=== PATIENT | female | born 1940 | race Caucasian/White ===

== ENCOUNTER 2017-10-12 10:29 | Inpatient (IN) ==
[2017-10-12 11:27] LABS: Baso % (Auto) 0.6 % (0.0-2.0); Eos # (Auto) 0.1 th/mm3 (0.0-0.4); Eos % (Auto) 1.1 % (0.0-4.0); Hematocrit 33.2 % (35.0-46.0); Hemoglobin 11.2 gm/dL (11.6-15.3); Lymph # (Auto) 0.9 th/mm3 (1.0-4.8); Lymph % (Auto) 20.9 % (9.0-44.0); Mean Corpuscular HGB Conc 33.8 % (32.0-36.0); Mean Corpuscular Hemoglobin 29.3 pg (27.0-34.0); Mean Corpuscular Volume 86.6 fL (80.0-100.0); Mean Platelet Volume 8.2 fL (7.0-11.0); Mono # (Auto) 0.4 th/mm3 (0.0-0.9); Mono % (Auto) 9.7 % (0.0-8.0); Neut % (Auto) 67.7 % (16.0-70.0); Platelet Count 198 th/mm3 (150-450); Red Blood Count 3.84 mil/mm3 (4.00-5.30); Red Cell Distribution Width 13.2 % (11.6-17.2); White Blood Count 4.5 th/mm3 (4.0-11.0)
[2017-10-12 11:38] LABS: Activated Partial Thrombo Time 22.7 sec (24.3-30.1); Prothrombin Time 10.6 sec (9.8-11.6)
[2017-10-12 11:44] LABS: Albumin 3.7 g/dL (3.4-5.0); Anion Gap 9 meq/L (5-15); Aspartate Aminotransferase 27 U/L (15-37); Blood Urea Nitrogen 23 mg/dL (7-18); Calcium 9.3 mg/dL (8.5-10.1); Carbon Dioxide 27.2 meq/L (21.0-32.0); Chloride 109 meq/L (98-107); Glomerular Filtration Rate 44 mL/min (>89); Glucose,Random 100 mg/dL (74-106); Potassium 3.7 meq/L (3.5-5.1); Sodium 145 meq/L (136-145)
[2017-10-12 11:45] LABS: Alanine Aminotransferase 23 U/L (10-53)
[2017-10-12 11:47] LABS: Alkaline Phosphatase 89 U/L (45-117); Total Protein 7.2 g/dL (6.4-8.2)
--- NOTE | 2017-10-12 14:56 | ED ---
HPI General Chief complaint: Eye Problems Stated complaint: medical complaint Time Seen by Provider: 10/12/17 10:42 History of Present Illness HPI narrative: Patient 69-year-old female presents emergency department for evaluation of decreased vision in the right eye as well as intermittent headaches. Patient states his symptoms been going intermittently for the past few years, she told her son about it and he insisted that she come to the ER to be evaluated. She states that she has been kind of ignoring these symptoms, she states that she does know that she has a 70% blockage in her right side of her neck. States currently she feels absolutely fine the last time she had an episode was yesterday. No chest pain no shortness breath no abdominal pain no nausea vomiting no weakness in her arms or legs and problems walking she does have a history of chronic lymphedema peer Related Data Home Medications Medication Instructions Recorded Confirmed aspirin [Aspir-81] 81 mg PO DAILY 10/12/17 10/12/17 atorvastatin 20 mg PO DAILY 10/12/17 10/12/17 levothyroxine 112 mcg PO DAILY 10/12/17 10/12/17 lisinopril-hydrochlorothiazide 1 tab PO DAILY 10/12/17 10/12/17 Allergies Allergy/AdvReac Type Severity Reaction Status Date / Time No Known Allergies Allergy Unverified 10/12/17 10:51 Review of Systems ROS: all other systems reviewed are negative PMFSH Medical History Medical History Arthritis (Acute) Breast hematoma (Acute) Carotid artery disease (Acute) Ear ache (Acute) Herniated disc (Acute) High cholesterol (Acute) Hypertension (Acute) Lymphedema (Acute) Surgical History Surgical History H/O right knee surgery (Acute) Previous back surgery (Acute) Family History Family History Other Cirrhosis Tuberculosis Social History Social History Substance History: No History of Abuse Second Hand Smoke Exposure: No Smoking Status: Never smoker How Often Do You Have a Drink Containing Alcohol: Monthly or less Recent Travel in [facility] within the Last 8 Weeks: No Recent Out of Country Travel within the Last 8 Weeks: No Immunization History Tetanus Immunization: Unsure Hx Influenza Vaccine This Season: No Exam Narrative Exam Narrative: GENERAL: Well-developed well-nourished no obvious distress SKIN: Focused skin assessment warm/dry. HEAD: Atraumatic. Normocephalic. EYES: Pupils equal and round. No scleral icterus. No injection or drainage. ENT: No nasal bleeding or discharge. Mucous membranes pink and moist. NECK: Trachea midline. No JVD. CARDIOVASCULAR: Regular rate and rhythm. No murmur appreciated. RESPIRATORY: No accessory muscle use. Clear to auscultation. Breath sounds equal bilaterally. GASTROINTESTINAL: Abdomen soft, non-tender, nondistended. Hepatic and splenic margins not palpable. MUSCULOSKELETAL: No obvious deformities. No clubbing. No cyanosis. Significant edema bilateral lower extremities which patient states is chronic. NEUROLOGICAL: Awake alert and oriented, cranial nerves II through XII are grossly intact and nonfocal, 5 out of 5 strength in all 4 extremities, ambulate with an even narrow-base gait. Cerebellar testing negative. PSYCHIATRIC: Appropriate mood and affect; insight and judgment normal. Course Initial Documented Vital Signs Temperature 97.5 F L 10/12/17 10:32 Pulse Rate 97 H 10/12/17 10:32 Respiratory Rate 16 10/12/17 10:32 Blood Pressure 169/112 H 10/12/17 10:32 Pulse Oximetry 98 10/12/17 10:32 Last Documented Vital Signs Temperature 97.5 F L 10/12/17 10:32 Pulse Rate 94 H 10/12/17 14:32 Respiratory Rate 18 10/12/17 14:32 Blood Pressure 160/71 H 10/12/17 14:32 Pulse Oximetry 98 10/12/17 14:32 Medical Decision Making MDM Narrative Medical decision making narrative: this is 69-year-old female presents emergency department with intermittent right sided headache as well as visual disturbances. States that she has a history of 70% carotid blockage on the right side. Currently asymptomatic. Symptoms have been protracted course and she has been ignoring them, told her family about them and they recommended that she come to the ER. Initial workup is negative, recommend a TIA observation she is agreeable peer Medical Screen Exam Complete: Yes Emergency Medical Condition: Yes Differential Diagnosis Differential Diagnosis: TIA, intracranial injury, temporal arteritis Lab Data Result diagrams: 10/12/17 11:15 10/12/17 11:15 Lab Results 10/12/17 10/12/17 10/12/17 Range/Units 11:15 11:15 11:15 WBC 4.5 (4.0-11.0) th/mm3 RBC 3.84 L (4.00-5.30) mil/mm3 Hgb 11.2 L (11.6-15.3) gm/dL Hct 33.2 L (35.0-46.0) % MCV 86.6 (80.0-100.0) fL MCH 29.3 (27.0-34.0) pg MCHC 33.8 (32.0-36.0) % RDW 13.2 (11.6-17.2) % Plt Count 198 (150-450) th/mm3 MPV 8.2 (7.0-11.0) fL Neut % (Auto) 67.7 (16.0-70.0) % Lymph % (Auto) 20.9 (9.0-44.0) % [place] % (Auto) 9.7 H (0.0-8.0) % Eos % (Auto) 1.1 (0.0-4.0) % Baso % (Auto) 0.6 (0.0-2.0) % Neut # (Auto) 3.0 (1.8-7.7) th/mm3 Lymph # (Auto) 0.9 L (1.0-4.8) th/mm3 [place] # (Auto) 0.4 (0.0-0.9) th/mm3 Eos # (Auto) 0.1 (0.0-0.4) th/mm3 Baso # (Auto) 0.0 (0.0-0.2) th/mm3 WBC Differential . Differential Comment Auto diff final ESR (0-30) mm/hr PT 10.6 (9.8-11.6) sec INR 1.0 Ratio APTT 22.7 L (24.3-30.1) sec Sodium 145 (136-145) meq/L Potassium 3.7 (3.5-5.1) meq/L Chloride 109 H (98-107) meq/L Carbon Dioxide 27.2 (21.0-32.0) meq/L Anion Gap 9 (5-15) meq/L BUN 23 H (7-18) mg/dL Creatinine 1.19 H (0.50-1.00) mg/dL Estimated GFR 44 L (>89) mL/min Random Glucose 100 (74-106) mg/dL Calcium 9.3 (8.5-10.1) mg/dL Total Bilirubin 0.6 (0.2-1.0) mg/dL AST 27 (15-37) U/L ALT 23 (10-53) U/L Alkaline Phosphatase 89 (45-117) U/L C-Reactive Protein Less than 0.29 (0.00-0.30) mg/dL Total Protein 7.2 (6.4-8.2) g/dL Albumin 3.7 (3.4-5.0) g/dL Triglycerides (42-150) mg/dL Cholesterol (120-200) mg/dL LDL Cholesterol, Calc (0-99) mg/dL HDL Cholesterol (40.0-60.0) mg/dL Cholesterol/HDL Ratio Ratio Vitamin B12 (193-986) pg/mL TSH (0.358-3.740) uIU/mL 10/12/17 10/12/17 Range/Units 11:15 11:15 WBC (4.0-11.0) th/mm3 RBC (4.00-5.30) mil/mm3 Hgb (11.6-15.3) gm/dL Hct (35.0-46.0) % MCV (80.0-100.0) fL MCH (27.0-34.0) pg MCHC (32.0-36.0) % RDW (11.6-17.2) % Plt Count (150-450) th/mm3 MPV (7.0-11.0) fL Neut % (Auto) (16.0-70.0) % Lymph % (Auto) (9.0-44.0) % [place] % (Auto) (0.0-8.0) % Eos % (Auto) (0.0-4.0) % Baso % (Auto) (0.0-2.0) % Neut # (Auto) (1.8-7.7) th/mm3 Lymph # (Auto) (1.0-4.8) th/mm3 [place] # (Auto) (0.0-0.9) th/mm3 Eos # (Auto) (0.0-0.4) th/mm3 Baso # (Auto) (0.0-0.2) th/mm3 WBC Differential Differential Comment ESR 34 H (0-30) mm/hr PT (9.8-11.6) sec INR Ratio APTT (24.3-30.1) sec Sodium (136-145) meq/L Potassium (3.5-5.1) meq/L Chloride (98-107) meq/L Carbon Dioxide (21.0-32.0) meq/L Anion Gap (5-15) meq/L BUN (7-18) mg/dL Creatinine (0.50-1.00) mg/dL Estimated GFR (>89) mL/min Random Glucose (74-106) mg/dL Calcium (8.5-10.1) mg/dL Total Bilirubin (0.2-1.0) mg/dL AST (15-37) U/L ALT (10-53) U/L Alkaline Phosphatase (45-117) U/L C-Reactive Protein (0.00-0.30) mg/dL Total Protein (6.4-8.2) g/dL Albumin (3.4-5.0) g/dL Triglycerides 104 (42-150) mg/dL Cholesterol 107 L (120-200) mg/dL LDL Cholesterol, Calc 44 (0-99) mg/dL HDL Cholesterol 42.3 (40.0-60.0) mg/dL Cholesterol/HDL Ratio 2.52 Ratio Vitamin B12 525 (193-986) pg/mL TSH Less than 0.005 L (0.358-3.740) uIU/mL Imaging Data Radiologist's impression: Carotid Doppler Study 10/12/17 00:00 CONCLUSION: 1. Right Internal Carotid Artery: Findings indicate near occlusion. 2. Left Internal Carotid Artery: Findings indicate 50-69% stenosis. 3. Antegrade flow is identified in both vertebral arteries. Head MRI 10/12/17 00:00 CONCLUSION: 1. No evidence of acute infarct, hemorrhage, mass or edema. 2. Mild cerebral white matter T2 hyperintensities characteristic of mild microvascular ischemic change. Head CT 10/12/17 14:28 CONCLUSION: Negative CT Head non contrast. . Discharge Plan Discharge Disposition Patient Disposition: 30 Still Patient Discharge Condition Condition: Stable Physicians Team ED Provider: Nacho Prater Primary Care Provider: UNKNOWN, Attending Provider: Lan Oropeza Discharge Interventions Interventions: ED Discharge Assessment Last Done: 10/12/17 17:33 Vital Signs Last Done: 10/12/17 14:32 Status ED Status: Left Department Discharge Information Discharge Date/Time: 10/12/17 17:33
--- NOTE | 2017-10-12 14:59 | CT ---
EXAM DATE: 10/12/2017 2:56 PM EDT AGE/SEX: 77 years / Female INDICATIONS: Headache 1 day, Double vision intermittent 8 months CLINICAL DATA: This is the patient's initial encounter. Patient reports that signs and symptoms have been present for 1 day and indicates a pain score of 5/10. MEDICAL/SURGICAL HISTORY: Hypertension. Lymphedema, Carotid artery disease . Knee and back surger y RADIATION DOSE: 34.42 CTDI (mGy) COMPARISON: No prior exams available for comparison. TECHNIQUE: CT of the head without contrast. Using automated exposure control and adjustment of the mA and/or kV according to patient size, radiation dose was kept as low as reasonably achievable to ob tain optimal diagnostic quality images. DICOM format image data is available electronically for revi ew and comparison. FINDINGS: Cerebrum: The ventricles are normal for age. No evidence of midline shift, mass lesion, hemorrhage or acute infarction. No extraaxial fluid collections are seen. Posterior Fossa: The cerebellum and brainstem are intact. The 4th ventricle is midline. The cerebe llopontine angle is unremarkable. Extracranial: The visualized portion of the orbits is intact. Skull: The calvaria is intact. No evidence of skull fracture. CONCLUSION: Negative CT Head non contrast. . Electronically signed by: Je Gann MD 10/12/2017 2:57 PM EDT
[2017-10-12] MEDS ORDERED: Acetaminophen 325 MG Tablet PO PRN (15:58)
--- NOTE | 2017-10-12 16:10 | P.HPIM ---
History of Present Illness Primary Care Physician: UNKNOWN Chief Complaint: Visual disturbance History of Present Illness: The patient is a 77-year-old female with a past medical history significant for hypertension, hyperlipidemia and carotid disease who is presenting to the hospital with chronic vision changes. The patient says that starting in January she has had episodes of lightheadedness that seem to correlate with episodes of right eye visual changes. The patient said that sometimes while she is watching TV all of a sudden her right eye becomes clouded. She also describes sometimes seeing double vision out of the right eye. She says at one time she could not see anything out of the right eye for a period of 10-15 minutes. She says the symptoms come and go. She currently is asymptomatic. She says her vision in her right eye is completely normal at this time. She denies any problems with her left eye. She said she went to have her eye checked out on Friday so she went to an eye doctor and was told that everything was fine. The patient says she came to the hospital today because her son encouraged her after having another episode yesterday while fishing. The patient is currently completely asymptomatic. She says she has some chronic shakiness. She denies any strength disturbances or any sensation of numbness. She does endorse night sweats from time to time. She says she was told that her right carotid is 70% occluded and she is wondering if that has anything to do with her visual disturbance. Review of Systems All other systems reviewed negative except as stated in HPI PMFSH - History History Provided By: Patient - Medical History Medical History: Medical History (Last Updated 10/12/17 @ 16:12 by Lan Oropeza DO) Arthritis Breast hematoma Carotid artery disease Ear ache Herniated disc High cholesterol Hypertension Lymphedema - Surgical History Surgical History: Surgical History (Last Updated 10/12/17 @ 10:49 by Yohana Ramirez) H/O right knee surgery Previous back surgery - Family History Family History: Family History (Last Updated 10/12/17 @ 16:12 by Lan Oropeza DO) Other Cirrhosis Tuberculosis - Tobacco History Second Hand Smoke Exposure: No Smoking Status: Former smoker (Quit in the 80s) - Alcohol History How Often Do You Have a Drink Containing Alcohol: Monthly or less - Substance Use History Substance History: No History of Abuse - Travel History Recent Travel in the [facility] Within the Last 8 Weeks: No Recent Travel Out of the Country Within the Last 8 Weeks: No - Immunization History Tetanus Immunization: Unsure Hx Influenza Vaccine This Season: No Medications and Allergies Active Medications: Active Medications Acetaminophen (Tylenol) 650 mg PO Q4H PRN PRN Reason: Temp > 100.4 Amlodipine Besylate (Norvasc) 5 mg PO DAILY [facility] Aspirin (Ecotrin) 81 mg PO DAILY [facility] Atorvastatin Calcium (Lipitor) 20 mg PO DAILY [facility] Clonidine HCl (Catapres) 0.1 mg PO Q6H PRN PRN Reason: SBP> OR = 180, DBP> OR = 100 Heparin Sodium (Porcine) (Heparin Inj) 5,000 units SQ Q8H RODGER Sodium Chloride (1/2 Normal Saline Inj) 1,000 mls @ 75 mls/hr IV.CONT .[id number] [facility] Stop: 10/13/17 18:39 Levothyroxine Sodium (Synthroid) 112 mcg PO DAILY@0600 RODGER Sodium Chloride (Ns Flush) 2 ml IV.FLUSH PRN PRN PRN Reason: FLUSH AFTER USING IV ACCESS Allergies Allergy/AdvReac Type Severity Reaction Status Date / Time No Known Allergies Allergy Unverified 10/12/17 10:51 Home Medications Medication Instructions Recorded Confirmed Type aspirin [Aspir-81] 81 mg PO DAILY 10/12/17 10/12/17 History atorvastatin 20 mg PO DAILY 10/12/17 10/12/17 History levothyroxine 112 mcg PO DAILY 10/12/17 10/12/17 History lisinopril-hydrochlorothiazide 1 tab PO DAILY 10/12/17 10/12/17 History Exam Vital signs: Vital Signs 10/12/17 10:32 10/12/17 10:50 10/12/17 14:32 Temperature 97.5 F L Pulse Rate 97 H 95 H 94 H Respiratory Rate 16 19 18 Blood Pressure 169/112 H 149/65 H 160/71 H Pulse Oximetry 98 96 98 Intake & Output 10/11/17 10/12/17 10/12/17 18:59 06:59 18:59 Weight 85.275 kg Other: # Voids 1 Narrative: General: NAD HEENT: NC, AT, no injection Cardiac: RRR, no murmurs Pulmonary: CTAB, no W/R/R Abdomen: Nontender, nondistended Extremities: Lymphedema noted Neuro: EOMI, communications intern intact, motor strength 5/5 in upper and lower extremities, mild tremor noted Results - Labs CBC & Chem 7: 10/12/17 11:15 10/12/17 11:15 Labs: Short CBC 10/12/17 Range/Units 11:15 WBC 4.5 (4.0-11.0) th/mm3 Hgb 11.2 L (11.6-15.3) gm/dL Hct 33.2 L (35.0-46.0) % Plt Count 198 (150-450) th/mm3 BMP 10/12/17 11:15 Sodium 145 Potassium 3.7 Chloride 109 H Carbon Dioxide 27.2 BUN 23 H Creatinine 1.19 H Calcium 9.3 Liver Function 10/12/17 Range/Units 11:15 Total Bilirubin 0.6 (0.2-1.0) mg/dL AST 27 (15-37) U/L ALT 23 (10-53) U/L Alkaline Phosphatase 89 (45-117) U/L Albumin 3.7 (3.4-5.0) g/dL - Imaging Impressions Head CT 10/12/17 14:28 CONCLUSION: Negative CT Head non contrast. . Caprini VTE Risk Assessment Caprini VTE Risk Assessment: Moderate/High Risk (score >= 2) Caprini Risk Assessment Model: Point Value = 1 Point Value = 2 Point Value = 3 Point Value = 5 Age 41-60 Minor surgery BMI > 25 kg/m2 Swollen legs Varicose veins or History of unexplained or recurrent spontaneous Oral contraceptives or hormone replacement Sepsis (< 1 month) Serious lung disease, including pneumonia (< 1 month) Abnormal pulmonary function Acute myocardial infarction Congestive heart failure (< 1 month) History of inflammatory bowel disease Medical patient at bed rest Age 61-74 Arthroscopic surgery Major open surgery (> 45 min) Laparoscopic surgery (> 45 min) Malignancy Confined to bed (> 72 hours) Immobilizing plaster cast Central venous access Age >= 75 History of VTE Family history of VTE Factor V Leiden Prothrombin [id number] Lupus anticoagulant Anticardiolipin antibodies Elevated serum homocysteine Heparin-induced thrombocytopenia Other congenital or acquired thrombophilia Stroke (< 1 month) Elective arthroplasty Hip, pelvis, or leg fracture Acute spinal cord injury (< 1 month) Prophylaxis Regimen: Total Risk Factor Score Risk Level Prophylaxis Regimen 0-1 Low Early ambulation 2 Moderate Order ONE of the following: *Sequential Compression Device (SCD) *Heparin 5000 units SQ BID 3-4 Higher Order ONE of the following medications: *Heparin 5000 units SQ TID *Enoxaparin/Lovenox 40 mg SQ daily (WT < 150 kg, CrCl > 30 mL/min) *Enoxaparin/Lovenox 30 mg SQ daily (WT < 150 kg, CrCl > 10-29 mL/min) *Enoxaparin/Lovenox 30 mg SQ BID (WT < 150 kg, CrCl > 30 mL/min) AND/OR *Sequential Compression Device (SCD) 5 or more Highest Order ONE of the following medications: *Heparin 5000 units SQ TID (Preferred with Epidurals) *Enoxaparin/Lovenox 40 mg SQ daily (WT < 150 kg, CrCl > 30 mL/min) *Enoxaparin/Lovenox 30 mg SQ daily (WT < 150 kg, CrCl > 10-29 mL/min) *Enoxaparin/Lovenox 30 mg SQ BID (WT < 150 kg, CrCl > 30 mL/min) AND *Sequential Compression Device (SCD) Assessment and Plan - Plan Visual changes Ongoing right eye changes starting in January, currently asymptomatic. Associated with light headedness. Recent fusion operator evaluation was normal. CT head unremarkable. The pt says she has a 70% blockage in her right carotid artery. -neuro checks. -check an EKG. -MRI brain, carotid US and echocardiogram pending. -check lipid profile, A1c, B12, ESR and TSH levels. -PT evaluation. -neurology consult in AM if needed. HTN Blood pressure elevated in the ED. -hold lisinopril/HCTZ in setting of renal insufficiency. -start amlodipine and adjust as needed. -clonidine as needed. Acute renal insufficiency Likely exacerbated by blood pressure meds. -hold home blood pressure meds. -IVFs. -follow BMP and avoid nephrotoxins. Hypothyroidism On levothyroxine. -TSH is pending. -continue levothyroxine. PPx: Heparin
[2017-10-12 16:40] LABS: Cholesterol 107 mg/dL (120-200); Triglycerides 104 mg/dL (42-150)
[2017-10-12] MEDS: Heparin - SQ 10,000 UNITS/ML Vial SQ SCH (16:52)
[2017-10-12] MEDS: Sodium Chloride 0.45 % Inj 1,000 ML IV.CONT SCH (16:52)
[2017-10-12] MEDS: amLODIPine 5 MG Tablet PO SCH (16:52)
[2017-10-12 17:05] LABS: Chol/HDL Ratio 2.52 Ratio; HDL Cholesterol 42.3 mg/dL (40.0-60.0); LDL Cholesterol,Calculated 44 mg/dL (0-99); Vitamin B12 525 pg/mL (193-986)
--- NOTE | 2017-10-12 17:27 | US ---
EXAM DATE: 10/12/2017 5:20 PM EDT AGE/SEX: 77 years / Female INDICATIONS: Cerebrovascular accident. CLINICAL DATA: This is the patient's initial encounter. Patient reports that signs and symptoms have been present for > 1 year and indicates a pain score of 2/10. MEDICAL/SURGICAL HISTORY: Hypercholesterolemia. Hypertension. Arthritis. Breast hematoma. Bucio tid artery disease. Lymphedema. . Right knee surgery. Back surgery. COMPARISON: No prior exams available for comparison. VELOCITY PARAMETERS: ICA/CCA Ratio: Right 5.5 , Left 1.9 ICA: Right 420 cm/sec, Left 199 cm/sec CCA: Right 76.5 cm/sec, Left 104 cm/sec ECA: Right 301 cm/sec, Left 140 cm/sec Vertebral: Right 72.8 cm/sec antegrade, Left 76.0 cm/sec antegrade FINDINGS: Right Carotid: Heavily calcified plaque is identified in the right carotid bifurcation extending int o the origin of the internal carotid artery. There is marked elevation of peak systolic velocity in t he proximal internal carotid artery. Significant spectral broadening and diastolic flow dampening is noted. Left Carotid: Moderate calcified plaque is identified in the left carotid bifurcation extending into the proximal internal carotid artery. There is [id number] elevation of peak systolic velocity. . The waveforms are within normal limits. Other: None. CONCLUSION: 1. Right Internal Carotid Artery: Findings indicate near occlusion. 2. Left Internal Carotid Artery: Findings indicate 50-69% stenosis. 3. Antegrade flow is identified in both vertebral arteries. Electronically signed by: Dewey Quinn MD 10/12/2017 5:26 PM EDT
--- NOTE | 2017-10-12 17:29 | MR ---
EXAM DATE: 10/12/2017 4:37 PM EDT AGE/SEX: 77 years / Female INDICATIONS: . Intermittent Tunnel vision. CLINICAL DATA: This is the patient's initial encounter. Patient reports that signs and symptoms have been present for 3 months and indicates a pain score of 0/10. MEDICAL/SURGICAL HISTORY: Hypertension. Discectomy, lumbar. Right knee. COMPARISON: [facility] [place], [place] HEAD W/O CONTRAST, 10/12/2017. . TECHNIQUE: Multiplanar, multisequence examination of the brain was performed without contrast. FINDINGS: Cerebrum: The ventricles are normal for age. No evidence of midline shift, mass lesion, hemorrhage or acute infarction. No extraaxial fluid collections are seen. The pituitary gland and suprasellar cistern are normal in configuration. White Matter: Mild signal abnormalities are seen in the white matter. Posterior Fossa: The cerebellum and brainstem are intact. The 4th ventricle is midline. The cerebel lopontine angle is unremarkable. The cerebellar tonsils are normal in position. Diffusion Imaging: No focal areas of restricted diffusion are seen. No evidence of acute infarction . Extracranial: The visualized portions of the orbits and paranasal sinuses are unremarkable. CONCLUSION: 1. No evidence of acute infarct, hemorrhage, mass or edema. 2. Mild cerebral white matter T2 hyperintensities characteristic of mild microvascular ischemic marcus ge. Electronically signed by: Dewey Quinn MD 10/12/2017 5:27 PM EDT
[2017-10-12] MEDS ORDERED: Melatonin 5 MG Tablet PO PRN (21:28)
[2017-10-13] MEDS: Heparin - SQ 10,000 UNITS/ML Vial SQ SCH ×3 (00:50→15:38)
[2017-10-13] MEDS: Sodium Chloride 0.45 % Inj 1,000 ML IV.CONT SCH (05:16)
[2017-10-13] MEDS ORDERED: Levothyroxine 112 MCG Tablet PO SCH (06:00)
[2017-10-13 06:18] LABS: Baso % (Auto) 0.6 % (0.0-2.0); Eos # (Auto) 0.1 th/mm3 (0.0-0.4); Eos % (Auto) 2.1 % (0.0-4.0); Hematocrit 31.2 % (35.0-46.0); Hemoglobin 10.5 gm/dL (11.6-15.3); Lymph # (Auto) 1.4 th/mm3 (1.0-4.8); Mean Corpuscular HGB Conc 33.7 % (32.0-36.0); Mean Corpuscular Hemoglobin 29.4 pg (27.0-34.0); Mean Corpuscular Volume 87.2 fL (80.0-100.0); Mean Platelet Volume 8.5 fL (7.0-11.0); Mono # (Auto) 0.5 th/mm3 (0.0-0.9); Mono % (Auto) 9.3 % (0.0-8.0); Neut # (Auto) 3.7 th/mm3 (1.8-7.7); Platelet Count 175 th/mm3 (150-450); Red Blood Count 3.57 mil/mm3 (4.00-5.30); Red Cell Distribution Width 13.5 % (11.6-17.2); White Blood Count 5.7 th/mm3 (4.0-11.0)
[2017-10-13 06:35] LABS: Albumin 3.3 g/dL (3.4-5.0); Anion Gap 9 meq/L (5-15); Aspartate Aminotransferase 26 U/L (15-37); Blood Urea Nitrogen 19 mg/dL (7-18); Calcium 9.5 mg/dL (8.5-10.1); Carbon Dioxide 26.3 meq/L (21.0-32.0); Chloride 109 meq/L (98-107); Glomerular Filtration Rate 54 mL/min (>89); Glucose,Random 84 mg/dL (74-106); Potassium 4.1 meq/L (3.5-5.1); Sodium 144 meq/L (136-145)
[2017-10-13 06:37] LABS: Alanine Aminotransferase 21 U/L (10-53)
[2017-10-13 06:39] LABS: Alkaline Phosphatase 84 U/L (45-117); Total Protein 6.6 g/dL (6.4-8.2)
[2017-10-13] MEDS: amLODIPine 5 MG Tablet PO SCH (08:45)
--- NOTE | 2017-10-13 14:58 | P.PNIM ---
Subjective Interval history: The patient is a 77-year-old female with a past medical history significant for hypertension, hyperlipidemia and carotid disease who is presenting to the hospital with chronic vision changes. The patient says that starting in January she has had episodes of lightheadedness that seem to correlate with episodes of right eye visual changes. The patient said that sometimes while she is watching TV all of a sudden her right eye becomes clouded. She also describes sometimes seeing double vision out of the right eye. She says at one time she could not see anything out of the right eye for a period of 10-15 minutes. She says the symptoms come and go. She currently is asymptomatic. She says her vision in her right eye is completely normal at this time. She denies any problems with her left eye. She said she went to have her eye checked out on Friday so she went to an eye doctor and was told that everything was fine. The patient says she came to the hospital today because her son encouraged her after having another episode yesterday while fishing. The patient is currently completely asymptomatic. She says she has some chronic shakiness. She denies any strength disturbances or any sensation of numbness. She does endorse night sweats from time to time. She says she was told that her right carotid is 70% occluded and she is wondering if that has anything to do with her visual disturbance. 10-13 THESE SYMPTOMS SOUND LIKE TIA/CVA LIKE SYMPTOMS ECHO IS PENDING HAS SEVERE RIGHT CAROTID STENOSIS WILL CONSULT NEUROLOGY FOR TIA NEED ECHO INCREASE ASPIRIN TO 325MG PO DAILY Physical Exam Vital signs: Vital Signs 10/12/17 18:20 10/12/17 20:00 10/13/17 00:00 Temperature 97.8 F 98.0 F 98.0 F Pulse Rate 83 78 78 Respiratory Rate 16 14 16 Blood Pressure 177/77 H 123/58 L 123/58 L Pulse Oximetry 96 10/13/17 04:00 10/13/17 07:35 10/13/17 08:00 Temperature 97.9 F 97.7 F Pulse Rate 76 85 76 Respiratory Rate 18 14 Blood Pressure 142/6 H 131/66 Pulse Oximetry 96 95 10/13/17 12:00 Temperature 98.0 F Pulse Rate 77 Respiratory Rate 12 Blood Pressure 135/63 Pulse Oximetry 97 Intake & Output 10/12/17 10/13/17 10/13/17 18:59 06:59 18:59 Intake Total 1480 / 1480 Balance 1480 / 1480 Weight 85.275 kg Intake: IV 1000 / 1000 1/2 Normal Saline Inj 1,000 ML 1000 / 1000 @ 75 mls/hr IV.CONT .[id number] [facility] Rx#:[id number] Oral 480 / 480 Other: # Voids 1 6 Narrative: GENERAL: Awake alert and oriented 3 talkative and cooperative SKIN: Warm and dry. HEAD: Atraumatic. Normocephalic. EYES: Pupils equal and round. No scleral icterus. No injection or drainage. ENT: No nasal bleeding or discharge. Mucous membranes pink and moist. NECK: Trachea midline. No JVD. CARDIOVASCULAR: Regular rate and rhythm. S1-S2 no S3 or S4 RESPIRATORY: No accessory muscle use. Clear to auscultation. Breath sounds equal bilaterally. GASTROINTESTINAL: Abdomen soft, non-tender, nondistended. Hepatic and splenic margins not palpable. MUSCULOSKELETAL: Extremities without clubbing, cyanosis, or edema. No obvious deformities. NEUROLOGICAL: Awake and alert. No obvious cranial nerve deficits. Motor grossly within normal limits. Five out of 5 muscle strength in the arms and legs. Normal speech. PSYCHIATRIC: Appropriate mood and affect; insight and judgment normal. Results - Labs CBC & Chem 7: 10/13/17 04:45 10/13/17 04:45 Laboratory Results - last 24 hr 10/12/17 10/13/17 10/13/17 11:15 04:45 04:45 WBC 5.7 RBC 3.57 L Hgb 10.5 L Hct 31.2 L MCV 87.2 MCH 29.4 MCHC 33.7 RDW 13.5 Plt Count 175 MPV 8.5 Neut % (Auto) 64.0 Lymph % (Auto) 24.0 [place] % (Auto) 9.3 H Eos % (Auto) 2.1 Baso % (Auto) 0.6 Neut # (Auto) 3.7 Lymph # (Auto) 1.4 [place] # (Auto) 0.5 Eos # (Auto) 0.1 Baso # (Auto) 0.0 WBC Differential . Differential Comment Auto diff final Sodium 144 Potassium 4.1 Chloride 109 H Carbon Dioxide 26.3 Anion Gap 9 BUN 19 H Creatinine 1.00 Estimated GFR 54 L Random Glucose 84 Calcium 9.5 Total Bilirubin 0.5 AST 26 ALT 21 Alkaline Phosphatase 84 Total Protein 6.6 D Albumin 3.3 L Triglycerides 104 Cholesterol 107 L LDL Cholesterol, Calc 44 HDL Cholesterol 42.3 Cholesterol/HDL Ratio 2.52 Vitamin B12 525 TSH Less than 0.005 L - Imaging Impressions Carotid Doppler Study 10/12/17 00:00 CONCLUSION: 1. Right Internal Carotid Artery: Findings indicate near occlusion. 2. Left Internal Carotid Artery: Findings indicate 50-69% stenosis. 3. Antegrade flow is identified in both vertebral arteries. Head MRI 10/12/17 00:00 CONCLUSION: 1. No evidence of acute infarct, hemorrhage, mass or edema. 2. Mild cerebral white matter T2 hyperintensities characteristic of mild microvascular ischemic change. Head CT 10/12/17 14:28 CONCLUSION: Negative CT Head non contrast. . - Procedures NONE Assessment and Plan - Plan Visual changes Ongoing right eye changes starting in January, currently asymptomatic. Associated with light headedness. Recent cycle director evaluation was normal. CT head unremarkable. The pt says she has a 70% blockage in her right carotid artery. -neuro checks. -check an EKG. -MRI brain, carotid US and echocardiogram pending. -check lipid profile, A1c, B12, ESR and TSH levels. -PT evaluation. -neurology consult Increase aspirin to 325 mg daily HTN Blood pressure elevated in the ED. -hold lisinopril/HCTZ in setting of renal insufficiency. -start amlodipine and adjust as needed. -clonidine as needed. Acute renal insufficiency Likely exacerbated by blood pressure meds. -hold home blood pressure meds. -IVFs. -follow BMP and avoid nephrotoxins. Hypothyroidism On levothyroxine. Will probably need her TSH back -TSH is pending. -continue levothyroxine. PPx: Heparin Code Status: FULL CODE Discussed Condition With: RN AND PT AND CM Discharge Planning: Pending neurology clearance
--- NOTE | 2017-10-13 16:04 | P.PNVS ---
Subjective Subjective/Hospital Course: Patient seen, full consult dictated 77-year-old lady with amaurosis fugax 3 and possible TIA to the right cerebral hemisphere. CT of the brain MRI of the brain are negative for stroke CTA of the neck pending and barring any surprises patient will be scheduled for right carotid endarterectomy next 48 hours In the meantime patient should be on heparin and Plavix and I will stop the heparin probably only a few hours prior to surgery Plan on R carotid endarterectomy on Friday Thanks J Objective Vital Signs / I&O: Vital Signs 10/12/17 18:20 10/12/17 20:00 10/13/17 00:00 Temperature 97.8 F 98.0 F 98.0 F Pulse Rate 83 78 78 Respiratory Rate 16 14 16 Blood Pressure 177/77 H 123/58 L 123/58 L Pulse Oximetry 96 10/13/17 04:00 10/13/17 07:35 10/13/17 08:00 Temperature 97.9 F 97.7 F Pulse Rate 76 85 76 Respiratory Rate 18 14 Blood Pressure 142/6 H 131/66 Pulse Oximetry 96 95 10/13/17 12:00 10/13/17 15:50 Temperature 98.0 F 98.0 F Pulse Rate 77 93 H Respiratory Rate 12 14 Blood Pressure 135/63 176/85 H Pulse Oximetry 97 99 Intake & Output 10/12/17 10/13/17 10/13/17 18:59 06:59 18:59 Intake Total 1480 / 1480 Balance 1480 / 1480 Weight 85.275 kg Intake: IV 1000 / 1000 1/2 Normal Saline Inj 1,000 ML 1000 / 1000 @ 75 mls/hr IV.CONT .[id number] [facility] Rx#:[id number] Oral 480 / 480 Other: # Voids 1 6 Laboratory Results - last 24 hr 10/12/17 10/13/17 10/13/17 11:15 04:45 04:45 WBC 5.7 RBC 3.57 L Hgb 10.5 L Hct 31.2 L MCV 87.2 MCH 29.4 MCHC 33.7 RDW 13.5 Plt Count 175 MPV 8.5 Neut % (Auto) 64.0 Lymph % (Auto) 24.0 [place] % (Auto) 9.3 H Eos % (Auto) 2.1 Baso % (Auto) 0.6 Neut # (Auto) 3.7 Lymph # (Auto) 1.4 [place] # (Auto) 0.5 Eos # (Auto) 0.1 Baso # (Auto) 0.0 WBC Differential . Differential Comment Auto diff final Sodium 144 Potassium 4.1 Chloride 109 H Carbon Dioxide 26.3 Anion Gap 9 BUN 19 H Creatinine 1.00 Estimated GFR 54 L Random Glucose 84 Calcium 9.5 Total Bilirubin 0.5 AST 26 ALT 21 Alkaline Phosphatase 84 Total Protein 6.6 D Albumin 3.3 L Triglycerides 104 Cholesterol 107 L LDL Cholesterol, Calc 44 HDL Cholesterol 42.3 Cholesterol/HDL Ratio 2.52 Vitamin B12 525 TSH Less than 0.005 L Impressions Carotid Doppler Study 10/12/17 00:00 CONCLUSION: 1. Right Internal Carotid Artery: Findings indicate near occlusion. 2. Left Internal Carotid Artery: Findings indicate 50-69% stenosis. 3. Antegrade flow is identified in both vertebral arteries. Head MRI 10/12/17 00:00 CONCLUSION: 1. No evidence of acute infarct, hemorrhage, mass or edema. 2. Mild cerebral white matter T2 hyperintensities characteristic of mild microvascular ischemic change. Head CT 10/12/17 14:28 CONCLUSION: Negative CT Head non contrast. .
[2017-10-13 16:46] LABS: Hemoglobin A1c 5.4 % (4.3-6.0)
[2017-10-13 17:27] LABS: INR 1.1 Ratio; Prothrombin Time 10.7 sec (9.8-11.6)
[2017-10-13] MEDS: Heparin Drip 25,000 UNIT/250 ML BAG IV.CONT PRN (17:45)
--- NOTE | 2017-10-13 17:57 | MR ---
EXAM DATE: 10/13/2017 5:52 PM EDT AGE/SEX: 77 years / Female INDICATIONS: . TIA. CLINICAL DATA: This is the patient's initial encounter. Patient reports that signs and symptoms have been present for 2 days and indicates a pain score of 0/10. MEDICAL/SURGICAL HISTORY: Hypertension. Discectomy, lumbar. Right knee. COMPARISON: [facility] – [place], MR HEAD W/O CONTRAST, 10/12/2017. . TECHNIQUE: 3D grye-is-uplxso MRA was performed. Source images, multiplanar STS MIP, and 3D volum e MIP reconstructions were reviewed. FINDINGS: There is excellent visualization of the major intracranial arteries out to the second-order branch ve ssels. There is no evidence for aneurysm, vessel truncation or stenosis, and no evidence for vascula r malformation. CONCLUSION: 1. Negative MRI of the brain. There is no major branch vessel occlusion. Electronically signed by: Steven Crespo MD 10/13/2017 5:56 PM EDT
--- NOTE | 2017-10-13 18:59 | MB ---
cc: Devon Lawrence MD DATE: 10/13/2017 CONSULTING PHYSICIAN: Devon Lawrence MD, of vascular surgery. REASON FOR CONSULTATION: Right internal carotid near occlusive stenosis, left with about 60% stenosis and TIAs. HISTORY OF PRESENT ILLNESS: This 77-year-old female who presents with some visual changes. The patient states that in January last year, she became lightheaded and then had some tunnel vision in the right eye and then clouds, lost the vision and then came back about 15 minutes later. She kind of let it go. Now, this happened again and she went to the eye doctor. While the eye doctor told her she was fine, and I guess she was, she came to the hospital at the encouragement of her son because she had another episode of the same. Ultrasound reveals near occlusion of the right internal carotid artery and about 60% left internal stenosis. Hence, the consultation. PAST MEDICAL HISTORY: Hyperlipidemia and hypertension. PAST SURGICAL HISTORY: Some sort of a breast hematoma from an accident drainage and then knee surgery as well as laminectomy. SOCIAL HISTORY: The patient smoked when she was young but stopped 30 something years ago. PHYSICAL EXAMINATION: GENERAL: Reveals a very pleasant 77-year-old lady. HEENT: Normocephalic. No trauma to head. Pupils are equal and reactive. Extraocular muscles intact. NECK: Bilateral carotid pulses and bilateral bruits. Actually, the one on the right is pretty strong and it is about 4/6. The other one on the left is about 3/6. No masses in the neck. CHEST: Bilateral breath sounds. Some degree of emphysema and loss of chest wall musculature with mild pulmonary cachexia but nothing else. HEART: Regular rhythm. ABDOMEN: Soft. Active bowel sounds. No rebound, no guarding, no masses. EXTREMITIES: Grossly within normal limits with good proximal and distal pulses. No signs of vascular deficit. The patient actually has palpable pulses throughout in arms and legs. BACK: Grossly normal. NEUROLOGIC: The patient is currently in normal. She has no motoric or sensory deficits. No lateralization. Deep tendon reflexes normal. No pathologic reflexes. CN 2-12 are normal. Her vision is back to baseline. ASSESSMENT AND PLAN: Laboratory and diagnostic procedures have been performed. The patient had an ultrasound and I ordered a CTA. MRI of the brain does not show any strokes. The patient will have surgery in the next 48 hours. Thank you very much for the referral. MD STEF Farr/bianca , 04:10 PM , 04:17 PM
--- NOTE | 2017-10-13 19:55 | CT ---
EXAM DATE: 10/13/2017 7:46 PM EDT AGE/SEX: 77 years / Female INDICATIONS: Abnormal carotid ultrasound. CLINICAL DATA: This is the patient's initial encounter. Patient reports that signs and symptoms have been present for 1 day and indicates a pain score of 0/10. MEDICAL/SURGICAL HISTORY: Hypertension. Cardiovascular disease. Parkinson's disease. None. RADIATION DOSE: 25.56 CTDI (mGy) COMPARISON: [facility] – [place], US CAROTID DOPPLER BI, 10/12/2017. . TECHNIQUE: Volumetric scanning was performed using a multirow detector CT scanner during bolus infus ion of 75 ml Omnipaque 350 (iohexol) nonionic water-soluble contrast as a single exam dose. The da ta was postprocessed with a variety of visualization algorithms including full-volume maximum intensi ty projection, multiplanar sliding thin-slab reformation, curved-planar reformation, and surface-rend ering techniques. Using automated exposure control and adjustment of the mA and/or kV according to p atient size, radiation dose was kept as low as reasonably achievable to obtain optimal diagnostic matteo lity images. DICOM format image data is available electronically for review and comparison. FINDINGS: Aortic Arch: The left common carotid artery arises from the base of the right brachiocephalic artery . This a normal variant. There are scattered atherosclerotic calcifications at the origin of the grea t vessels without an area of significant stenosis. Scattered aortic calcifications are seen. Right Carotid: The common carotid artery is intact. There is dense calcification at the carotid bul b region. There appears to be a significant stenosis narrowing the lumen by at least 60% at the carot id bulb region. This is best visualized on the curved reconstructed images. The more distal aspect of the internal carotid artery is patent. The external carotid artery is intact. Left Carotid: The common carotid artery is intact. There is mild calcification at the carotid bulb and proximal internal carotid artery. Some minimal soft plaque is seen. Significant stenosis at this level is not seen. The more distal aspect of the internal carotid artery is patent. The external gupta tid artery is intact. Vertebrals: The vertebral arteries have a symmetric diameter. No stenotic lesions are seen. Percent stenosis is calculated using the diameter of the stenotic region over the diameter of the nor mal distal internal carotid artery. CONCLUSION: 1. Dense calcification at the right carotid bulb region with a suspected significant stenosis. 2. Mild plaque at the left carotid bulb region without a significant stenosis. Electronically signed by: Je Best MD 10/13/2017 7:53 PM EDT
--- NOTE | 2017-10-13 19:56 | MB ---
cc: Any Lopez MD DATE: 10/13/2017 REASON FOR CONSULTATION: TIA. HISTORY OF PRESENT ILLNESS: This is a pleasant 77-year-old woman who was having issues with vision off and on over the last few months, just a feeling of not feeling well, lightheadedness and then to the point where her eye became very cloudy, the right eye and at times could not see. Today she feels back to baseline. She also has some double vision with the right eye. Episodes could last anywhere from 10 to 15 minutes without any trouble speaking facial droop, droopy eye weakness, numbness, tingling. She denied any chest pain or palpitations. She says that she has a history of her right carotid being 70% occluded but nothing had been done about it. She recently moved here from [place]. She does not have a family doctor thus far. PAST MEDICAL HISTORY: Arthritis, carotid artery disease, disk disease, hyperlipidemia, hypertension, hypothyroidism and lymphedema of both lower extremities. SURGICAL HISTORY: Right knee. PAST SURGICAL HISTORY: Previous back surgery. FAMILY HISTORY: Noncontributory at this point. SOCIAL HISTORY: She has quit smoking in the 80s. Drinks rarely. ALLERGIES TO MEDICINE: None reported. HOME MEDICINES: Baby aspirin, Norvasc, atorvastatin, clonidine p.r.n., Synthroid and, I believe, lisinopril. PHYSICAL EXAMINATION: VITAL SIGNS: Temperature is 98, heart rate 77, respiratory rate 12, blood pressure 135/63. NECK: Supple. She does have a right carotid bruit. CARDIOVASCULAR: Regular. LUNGS: Clear. ABDOMEN: Soft. EXTREMITIES: She has lymphedema bilaterally. NEUROLOGIC: She is awake, alert. She is oriented and fluent. Both pupils are reactive. Visual almaraz are full. Face symmetrical. Tongue midline. She has no visual loss at this time. No ptosis. Hearing is normal. Motor: No drift or leg lag. Cerebellar testing is normal. DTRs are 1+. Toes withdraws. Gait at this point is deferred to PT. She does ambulate with a cane due to her lymphedema and right meniscus history. LABORATORY DATA: Reviewed. IMAGING STUDIES: Her MRI of the brain did not show any acute findings. Carotid ultrasound, however, showed a right ICA near occlusion, left ICA 50% to 69%. IMPRESSION: 1. Transient ischemic attack-like event involving the right eye, likely from right carotid near occlusion. 2. Right carotid near-occlusive disease. Recommend vascular surgery consult. She will need a right carotid endarterectomy as I believe the right carotid is what is causing her symptoms. For completion, I will go ahead and order an MRA of the [place] to look at her intracranial arteries. Maintain her slightly hypertensive for adequate cerebral perfusion pressure. I recommend that she stay at bed rest. Her aspirin has been increased from baby aspirin to full dose. We will defer any other studies to vascular surgery if they want a CT angiogram or not. Continue current care. MD MANSOOR Barcenas/yuliana , 03:42 PM , 03:49 PM
[2017-10-14] MEDS: Levothyroxine 100 MCG Tablet PO SCH (05:00)
[2017-10-14 06:22] LABS: Baso % (Auto) 0.6 % (0.0-2.0); Eos # (Auto) 0.2 th/mm3 (0.0-0.4); Eos % (Auto) 4.1 % (0.0-4.0); Hematocrit 28.7 % (35.0-46.0); Hemoglobin 9.6 gm/dL (11.6-15.3); Lymph % (Auto) 23.2 % (9.0-44.0); Mean Corpuscular HGB Conc 33.3 % (32.0-36.0); Mean Corpuscular Hemoglobin 29.1 pg (27.0-34.0); Mean Corpuscular Volume 87.3 fL (80.0-100.0); Mono # (Auto) 0.5 th/mm3 (0.0-0.9); Mono % (Auto) 10.7 % (0.0-8.0); Neut # (Auto) 2.7 th/mm3 (1.8-7.7); Neut % (Auto) 61.4 % (16.0-70.0); Platelet Count 155 th/mm3 (150-450); Red Blood Count 3.29 mil/mm3 (4.00-5.30); Red Cell Distribution Width 13.3 % (11.6-17.2); White Blood Count 4.3 th/mm3 (4.0-11.0)
[2017-10-14 06:53] LABS: Magnesium 1.6 mg/dL (1.5-2.5); Phosphorus 4.3 mg/dL (2.5-4.9)
[2017-10-14 06:56] LABS: Chol/HDL Ratio 1.95 Ratio; Free T4 (Free Thyroxine) 2.69 ng/dL (0.76-1.46)
[2017-10-14] MEDS: Aspirin 325 MG Tablet PO SCH (08:53)
--- NOTE | 2017-10-14 09:36 | P.PNVS ---
Subjective Subjective/Hospital Course: Patient seen, full consult dictated 77-year-old lady with amaurosis fugax 3 and possible TIA to the right cerebral hemisphere. CT of the brain MRI of the brain are negative for stroke CTA of the neck pending and barring any surprises patient will be scheduled for right carotid endarterectomy next 48 hours In the meantime patient should be on heparin and Plavix and I will stop the heparin probably only a few hours prior to surgery Plan on R carotid endarterectomy on Friday Thanks J 09/13/2017 CTA of the neck carotids confirms the ultrasound established diagnosis Patient has tight right internal carotid artery stenosis in the range of 90% almost occluded and on the left there is probably 20-30% narrowing which is hemodynamically nonsignificant. In face of the very tight stenosis and near occlusion patient scheduled for right internal carotid endarterectomy tomorrow and will remain on heparin until just before the surgery Have discussed the risk and benefits of surgery with the patient Objective Vital Signs / I&O: Vital Signs 10/13/17 12:00 10/13/17 15:50 10/13/17 20:00 Temperature 98.0 F 98.0 F 97.7 F Pulse Rate 77 93 H 80 Respiratory Rate 12 14 14 Blood Pressure 135/63 176/85 H 134/64 Pulse Oximetry 97 99 96 10/14/17 02:00 10/14/17 03:58 10/14/17 04:59 Temperature 97.5 F L 97.7 F Pulse Rate 85 77 64 Respiratory Rate 18 16 Blood Pressure 145/67 H 140/63 Pulse Oximetry 95 94 L Intake & Output 10/13/17 10/14/17 10/14/17 18:59 06:59 18:59 Intake Total 1075 / 1075 Balance 1075 / 1075 Weight 83.4 kg Intake: IV 1000 / 1000 1/2 Normal Saline Inj 1,000 ML 1000 / 1000 @ 75 mls/hr IV.CONT .[id number] [facility] Rx#:[id number] Oral 75 / 75 Other: # Voids 4 1 Date of Last Bowel Movement 10/12/17 Laboratory Results - last 24 hr 10/12/17 10/13/17 10/13/17 11:15 23:48 Unknown WBC RBC Hgb Hct MCV MCH MCHC RDW Plt Count MPV Neut % (Auto) Lymph % (Auto) [place] % (Auto) Eos % (Auto) Baso % (Auto) Neut # (Auto) Lymph # (Auto) [place] # (Auto) Eos # (Auto) Baso # (Auto) WBC Differential Differential Comment PT 10.7 INR 1.1 APTT 57.2 H D 25.0 Hemoglobin A1c 5.4 Phosphorus Magnesium Triglycerides Cholesterol LDL Cholesterol, Calc HDL Cholesterol Cholesterol/HDL Ratio Free T4 10/14/17 10/14/17 10/14/17 05:58 05:58 05:58 WBC 4.3 RBC 3.29 L Hgb 9.6 L Hct 28.7 L MCV 87.3 MCH 29.1 MCHC 33.3 RDW 13.3 Plt Count 155 MPV 8.0 Neut % (Auto) 61.4 Lymph % (Auto) 23.2 [place] % (Auto) 10.7 H Eos % (Auto) 4.1 H Baso % (Auto) 0.6 Neut # (Auto) 2.7 Lymph # (Auto) 1.0 [place] # (Auto) 0.5 Eos # (Auto) 0.2 Baso # (Auto) 0.0 WBC Differential . Differential Comment Auto diff final PT INR APTT Hemoglobin A1c Phosphorus 4.3 Magnesium 1.6 Triglycerides 41 L Cholesterol 90 L LDL Cholesterol, Calc 36 HDL Cholesterol 46.0 Cholesterol/HDL Ratio 1.95 Free T4 2.69 H 10/14/17 05:58 WBC RBC Hgb Hct MCV MCH MCHC RDW Plt Count MPV Neut % (Auto) Lymph % (Auto) [place] % (Auto) Eos % (Auto) Baso % (Auto) Neut # (Auto) Lymph # (Auto) [place] # (Auto) Eos # (Auto) Baso # (Auto) WBC Differential Differential Comment PT INR APTT 65.5 H Hemoglobin A1c Phosphorus Magnesium Triglycerides Cholesterol LDL Cholesterol, Calc HDL Cholesterol Cholesterol/HDL Ratio Free T4 Impressions Carotid Doppler Study 10/12/17 00:00 CONCLUSION: 1. Right Internal Carotid Artery: Findings indicate near occlusion. 2. Left Internal Carotid Artery: Findings indicate 50-69% stenosis. 3. Antegrade flow is identified in both vertebral arteries. Head MRI 10/12/17 00:00 CONCLUSION: 1. No evidence of acute infarct, hemorrhage, mass or edema. 2. Mild cerebral white matter T2 hyperintensities characteristic of mild microvascular ischemic change. Head CT 10/12/17 14:28 CONCLUSION: Negative CT Head non contrast. . Head MRA 10/13/17 00:00 CONCLUSION: 1. Negative MRI of the brain. There is no major branch vessel occlusion. Neck CTA 10/13/17 00:00 CONCLUSION: 1. Dense calcification at the right carotid bulb region with a suspected significant stenosis. 2. Mild plaque at the left carotid bulb region without a significant stenosis.
[2017-10-14] MEDS ORDERED: Chlorhexidine Gluconate 2% 1 Pack (2 Cloths) TOPICAL SCH (11:45)
[2017-10-14] MEDS ORDERED: Metoprolol Tartrate 25 MG Tablet PO SCH (11:45)
[2017-10-14] MEDS ORDERED: Sodium Chlor 0.9% Inj 500 ML IV.SIG SCH (12:00)
--- NOTE | 2017-10-14 12:39 | P.PN ---
Subjective Interval history: Follow up: carotid artery stenosis with visual changes Patient reports feeling well today no complaints at this time looking forward to surgery tomorrow Physical Exam Vital signs: Vital Signs 10/13/17 15:50 10/13/17 20:00 10/14/17 02:00 Temperature 98.0 F 97.7 F 97.5 F L Pulse Rate 93 H 80 85 Respiratory Rate 14 14 18 Blood Pressure 176/85 H 134/64 145/67 H Pulse Oximetry 99 96 95 10/14/17 03:58 10/14/17 04:59 10/14/17 08:00 Temperature 97.7 F 97.6 F Pulse Rate 77 64 74 Respiratory Rate 16 18 Blood Pressure 140/63 125/87 Pulse Oximetry 94 L 95 10/14/17 09:00 Temperature Pulse Rate 105 H Respiratory Rate Blood Pressure Pulse Oximetry Intake & Output 10/13/17 10/14/17 10/14/17 18:59 06:59 18:59 Intake Total 1075 / 1075 Balance 1075 / 1075 Weight 83.4 kg Intake: IV 1000 / 1000 1/2 Normal Saline Inj 1,000 ML 1000 / 1000 @ 75 mls/hr IV.CONT .[id number] RODGER Rx#:[id number] Oral 75 / 75 Other: # Voids 4 1 Date of Last Bowel Movement 10/12/17 Narrative: GENERAL: Awake alert and oriented 3 in no acute distress SKIN: Warm and dry. HEAD: Atraumatic. Normocephalic. EYES: EOMI. No scleral icterus. No injection or drainage. CARDIOVASCULAR: Regular rate and rhythm. RESPIRATORY: No accessory muscle use. Clear to auscultation. Breath sounds equal bilaterally. GASTROINTESTINAL: Abdomen soft, non-tender, nondistended. MUSCULOSKELETAL: Extremities without clubbing, cyanosis, or edema. No obvious deformities. NEUROLOGICAL: Awake and alert. No obvious cranial nerve deficits. Motor grossly within normal limits. Five out of 5 muscle strength in the arms and legs. Normal speech. PSYCHIATRIC: Appropriate mood and affect; insight and judgment normal. Results - Labs CBC & Chem 7: 10/14/17 05:58 10/13/17 04:45 Laboratory Results - last 24 hr 10/12/17 10/13/17 10/13/17 11:15 23:48 Unknown WBC RBC Hgb Hct MCV MCH MCHC RDW Plt Count MPV Neut % (Auto) Lymph % (Auto) [place] % (Auto) Eos % (Auto) Baso % (Auto) Neut # (Auto) Lymph # (Auto) [place] # (Auto) Eos # (Auto) Baso # (Auto) WBC Differential Differential Comment PT 10.7 INR 1.1 APTT 57.2 H D 25.0 Hemoglobin A1c 5.4 Phosphorus Magnesium Triglycerides Cholesterol LDL Cholesterol, Calc HDL Cholesterol Cholesterol/HDL Ratio Free T4 10/14/17 10/14/17 10/14/17 05:58 05:58 05:58 WBC 4.3 RBC 3.29 L Hgb 9.6 L Hct 28.7 L MCV 87.3 MCH 29.1 MCHC 33.3 RDW 13.3 Plt Count 155 MPV 8.0 Neut % (Auto) 61.4 Lymph % (Auto) 23.2 [place] % (Auto) 10.7 H Eos % (Auto) 4.1 H Baso % (Auto) 0.6 Neut # (Auto) 2.7 Lymph # (Auto) 1.0 [place]aston # (Auto) 0.5 Eos # (Auto) 0.2 Baso # (Auto) 0.0 WBC Differential . Differential Comment Auto diff final PT INR APTT Hemoglobin A1c Phosphorus 4.3 Magnesium 1.6 Triglycerides 41 L Cholesterol 90 L LDL Cholesterol, Calc 36 HDL Cholesterol 46.0 Cholesterol/HDL Ratio 1.95 Free T4 2.69 H 10/14/17 05:58 WBC RBC Hgb Hct MCV MCH MCHC RDW Plt Count MPV Neut % (Auto) Lymph % (Auto) [place] % (Auto) Eos % (Auto) Baso % (Auto) Neut # (Auto) Lymph # (Auto) [place] # (Auto) Eos # (Auto) Baso # (Auto) WBC Differential Differential Comment PT INR APTT 65.5 H Hemoglobin A1c Phosphorus Magnesium Triglycerides Cholesterol LDL Cholesterol, Calc HDL Cholesterol Cholesterol/HDL Ratio Free T4 - Imaging Impressions Head MRA 10/13/17 00:00 CONCLUSION: 1. Negative MRI of the brain. There is no major branch vessel occlusion. Neck CTA 10/13/17 00:00 CONCLUSION: 1. Dense calcification at the right carotid bulb region with a suspected significant stenosis. 2. Mild plaque at the left carotid bulb region without a significant stenosis. - Procedures NONE Assessment and Plan - Plan Carotid artery stenosis Visual changes Ongoing right eye changes starting in January, currently asymptomatic. Associated with light headedness. Recent color maker dyer evaluation was normal. CT head unremarkable. The pt says she has a 70% blockage in her right carotid artery. -neuro checks. -Carotid Doppler Study 10/12/17 00:00 CONCLUSION: 1. Right Internal Carotid Artery: Findings indicate near occlusion. 2. Left Internal Carotid Artery: Findings indicate 50-69% stenosis. 3. Antegrade flow is identified in both vertebral arteries. -Head MRI 10/12/17 00:00 CONCLUSION: 1. No evidence of acute infarct, hemorrhage, mass or edema. 2. Mild cerebral white matter T2 hyperintensities characteristic of mild microvascular ischemic change. - Head CT 10/12/17 14:28 CONCLUSION: Negative CT Head non contrast. - Head MRA 10/13/17 00:00 CONCLUSION: 1. Negative MRI of the brain. There is no major branch vessel occlusion. - Neck CTA 10/13/17 00:00 CONCLUSION: 1. Dense calcification at the right carotid bulb region with a suspected significant stenosis. 2. Mild plaque at the left carotid bulb region without a significant stenosis. -echocardiogram pending. -check lipid profile LDL 36, A1c 5.4, B12 525, ESR 34 and TSH 0.005 free T4 2.69 -PT evaluation. -neurology consult, appreciate input - Increase aspirin to 325 mg daily - plan for R CEA with Afshan Sanchez tomorrow -NPO after midnight HTN Blood pressure elevated in the ED. -hold lisinopril/HCTZ in setting of renal insufficiency. -start amlodipine and adjust as needed. -clonidine as needed. Acute renal insufficiency Likely exacerbated by blood pressure meds. -hold home blood pressure meds. -IVFs. -creatinine trending down -follow BMP and avoid nephrotoxins. Hypothyroidism On levothyroxine. TSH 0.005 free T4 2.69 -levothyroxine has been decreased from 112mcg daily to 100 mcg daily -patient will need to follow up outpatient for further monitoring and adjustment PPx: Heparin CAse discussed with supervising physician Dr. Alexander
--- NOTE | 2017-10-14 15:18 | ECHRPT ---
Indication: CVA/TIA CONCLUSIONS The left ventricular systolic function is normal with an estimated ejection fraction in the range of 60-65%. Mild concentric left ventricular hypertrophy. Trace mitral valve regurgitation. There is mild tricuspid valve regurgitation. BP: / HR: Rhythm: Sinus MEASUREMENTS (Male / Female) Normal Values Technical Quality:Fair 2D ECHO LV Diastolic Diameter PLAX 5.0 cm 4.2 - 5.9 / 3.9 - 5.3 cm LV Systolic Diameter PLAX 3.4 cm IVS Diastolic Thickness 1.0 cm 0.6 - 1.0 / 0.6 - 0.9 cm LVPW Diastolic Thickness 1.0 cm 0.6 - 1.0 / 0.6 - 0.9 cm LV Relative Wall Thickness 0.4 RV Internal Dim ED PLAX 2.3 cm LVOT Diameter 1.9 cm Aortic Root Diameter 3.7 cm LA Systolic Diameter LX 3.5 cm 3.0 - 4.0 / 2.7 - 3.8 cm M-MODE AV Cusp Separation MM 1.9 cm DOPPLER AV Peak Velocity 216.0 cm/s AV Peak Gradient 18.7 mmHg AV Mean Gradient 9.0 mmHg AV Velocity Time Integral 42.2 cm LVOT Peak Velocity 110.0 cm/s LVOT Peak Gradient 4.8 mmHg LVOT Velocity Time Integral 24.4 cm AV Area Cont Eq vti 1.6 cm AV Area Cont Eq pk 1.4 cm Mitral E Point Velocity 98.2 cm/s Mitral A Point Velocity 112.0 cm/s Mitral E to A Ratio 0.9 LV E' Lateral Velocity 12.6 cm/s Mitral E to LV E' Lateral Ratio 7.8 LV E' Septal Velocity 8.4 cm/s Mitral E to LV E' Septal Ratio 11.7 TR Peak Velocity 339.0 cm/s TR Peak Gradient 46.0 mmHg Right Atrial Pressure 10.0 mmHg Pulmonary Artery Systolic Pressu 56.0 mmHg Right Ventricular Systolic Press 56.0 mmHg PV Peak Velocity 74.4 cm/s PV Peak Gradient 2.2 mmHg FINDINGS LEFT VENTRICLE Normal left ventricular size. Mild concentric left ventricular hypertrophy. The left ventricular systolic function is normal with an estimated ejection fraction in the range of 60-65%. RIGHT VENTRICLE Normal right ventricular size and systolic function. LEFT ATRIUM The left atrial size is upper limits of normal. RIGHT ATRIUM The right atrial size is upper limits of normal. ATRIAL SEPTUM No atrial level shunt is demonstrated by color flow Doppler interrogation. AORTA Borderline aortic root dilatation. MITRAL VALVE Structurally normal mitral valve. No mitral valve stenosis. Trace mitral valve regurgitation. AORTIC VALVE Trileaflet aortic valve. No aortic valve stenosis or regurgitation. Aortic valve sclerosis is present. TRICUSPID VALVE Grossly normal There is mild tricuspid valve regurgitation. The estimated pulmonary arterial pressure is 56 mmHg. No tricuspid valve stenosis. PULMONARY VALVE Trivial pulmonary valve regurgitation. VESSELS The inferior vena cava is normal in size. PERICARDIUM No pericardial effusion. Lv Poole DO (Electronically Signed) Final Date:14 October 2017 15:17
[2017-10-14] MEDS: Heparin Drip 25,000 UNIT/250 ML BAG IV.CONT PRN (18:13)
[2017-10-15 06:48] LABS: Hematocrit 27.9 % (35.0-46.0); Hemoglobin 9.4 gm/dL (11.6-15.3); Mean Corpuscular HGB Conc 33.7 % (32.0-36.0); Mean Corpuscular Hemoglobin 29.3 pg (27.0-34.0); Platelet Count 155 th/mm3 (150-450); Red Blood Count 3.21 mil/mm3 (4.00-5.30); White Blood Count 4.7 th/mm3 (4.0-11.0)
[2017-10-15] MEDS: Levothyroxine 100 MCG Tablet PO SCH (07:26)
[2017-10-15] MEDS: Aspirin 325 MG Tablet PO SCH (08:40)
[2017-10-15] MEDS ORDERED: Lidocaine PF 1% Inj 5 ML Syringe INFILTRATN ONE (12:00)
[2017-10-15] MEDS ORDERED: Glycopyrrolate Inj 1 MG/5 ML Syringe IV.PUSH ONE (12:00)
[2017-10-15] MEDS ORDERED: Esmolol Bolus Inj 100 MG/10 ML Vial IV.PUSH ONE (12:00)
[2017-10-15] MEDS ORDERED: Neostigmine Inj 5 MG/5 ML Syringe IV.PUSH ONE (12:00)
[2017-10-15] MEDS ORDERED: Labetalol HCl Inj 100 MG/20 ML Vial IV.CONT ONE (12:00)
[2017-10-15] MEDS ORDERED: Heparin - SQ 10,000 UNITS/ML Vial ONE (13:07)
[2017-10-15] MEDS ORDERED: Heparin 10,000 UNITS/10 ML Vial (for IV use) ONE (13:07)
[2017-10-15] MEDS ORDERED: Protamine Sulfate Inj 50 MG/5 ML Vial ONE (13:08)
[2017-10-15] MEDS ORDERED: Lidocaine 2% Inj 50 ML Vial ONE (13:10)
[2017-10-15] MEDS ORDERED: fentaNYL Citrate Inj 100 MCG/2 ML Ampul ONE (16:26)
[2017-10-15] MEDS ORDERED: *morphine SULFATE 4 MG/ML PERIprocedure ONLY ONE (17:05)
--- NOTE | 2017-10-15 17:57 | P.PN ---
Subjective Interval history: Patient is seen sitting up in room. She is waiting for her surgery. Denies any questions or concerns. No chest pain or shortness of breath. No nausea vomiting or diarrhea. She has been n.p.o. Physical Exam Vital signs: Vital Signs 10/14/17 18:00 10/14/17 19:19 10/14/17 20:00 Temperature 98.1 F Pulse Rate 79 89 63 Respiratory Rate 18 Blood Pressure 145/66 H Pulse Oximetry 97 10/15/17 01:00 10/15/17 03:38 10/15/17 08:00 Temperature 98.3 F 98.0 F 97.8 F Pulse Rate 80 82 83 Respiratory Rate 17 18 18 Blood Pressure 138/63 136/63 167/75 H Pulse Oximetry 96 95 94 L 10/15/17 12:00 Temperature 97.9 F Pulse Rate 89 Respiratory Rate 16 Blood Pressure 174/78 H Pulse Oximetry 97 Intake & Output 10/14/17 10/15/17 10/15/17 18:59 06:59 18:59 Intake Total 250 / 250 0 / 0 1350 / 1350 Output Total 100 / 100 Balance 250 / 250 0 / 0 1250 / 1250 Weight 83.4 kg Intake: IV 250 / 250 250 / 250 Heparin/D5W 25,000 U/250 mL 25, 250 / 250 250 / 250 000 unit In 250 ml @ 1,000 UNITS/HR 10 mls/hr IV.CONT TITRATE PRN Rx#:[id number] Oral 0 / 0 Anesthesia Amount 1100 / 1100 Output: Estimated Blood Loss 100 / 100 Other: # Voids 3 3 Date of Last Bowel Movement 10/12/17 10/12/17 10/12/17 # Bowel Movements 0 Narrative: GENERAL: Awake alert and oriented 3 in no acute distress SKIN: Warm and dry. HEAD: Atraumatic. Normocephalic. EYES: EOMI. No scleral icterus. No injection or drainage. CARDIOVASCULAR: Regular rate and rhythm. RESPIRATORY: No accessory muscle use. Clear to auscultation. Breath sounds equal bilaterally. GASTROINTESTINAL: Abdomen soft, non-tender, nondistended. MUSCULOSKELETAL: Extremities without clubbing, cyanosis, or edema. No obvious deformities. NEUROLOGICAL: Awake and alert. No obvious cranial nerve deficits. Motor grossly within normal limits. Normal speech. PSYCHIATRIC: Appropriate mood and affect; insight and judgment normal. Results - Labs CBC & Chem 7: 10/15/17 06:10 10/13/17 04:45 Laboratory Results - last 24 hr 10/14/17 10/14/17 10/15/17 15:55 18:14 06:10 WBC 4.7 RBC 3.21 L Hgb 9.4 L Hct 27.9 L MCV 87.0 MCH 29.3 MCHC 33.7 RDW 13.0 Plt Count 155 MPV 8.0 APTT 44.8 H Blood Type O Positive Antibody Screen Negative MTS Gel Crossmatch See Detail 10/15/17 06:10 WBC RBC Hgb Hct MCV MCH MCHC RDW Plt Count MPV APTT 42.2 H Blood Type Antibody Screen MTS Gel Crossmatch - Procedures NONE Assessment and Plan - Plan Carotid artery stenosis Visual changes Ongoing right eye changes starting in January, currently asymptomatic. Associated with light headedness. Recent junior analyst evaluation was normal. CT head unremarkable. The pt says she has a 70% blockage in her right carotid artery. -neuro checks. -Carotid Doppler Study 10/12/17 00:00 CONCLUSION: 1. Right Internal Carotid Artery: Findings indicate near occlusion. 2. Left Internal Carotid Artery: Findings indicate 50-69% stenosis. 3. Antegrade flow is identified in both vertebral arteries. -Head MRI 10/12/17 00:00 CONCLUSION: 1. No evidence of acute infarct, hemorrhage, mass or edema. 2. Mild cerebral white matter T2 hyperintensities characteristic of mild microvascular ischemic change. - Head CT 10/12/17 14:28 CONCLUSION: Negative CT Head non contrast. - Head MRA 10/13/17 00:00 CONCLUSION: 1. Negative MRI of the brain. There is no major branch vessel occlusion. - Neck CTA 10/13/17 00:00 CONCLUSION: 1. Dense calcification at the right carotid bulb region with a suspected significant stenosis. 2. Mild plaque at the left carotid bulb region without a significant stenosis. -echocardiogram EF 60-65%; trace regurgitation. -PT evaluation. -neurology consult, appreciate input - Increase aspirin to 325 mg daily - plan for R CEA with Afshan Sanchez 10/15 -NPO after midnight HTN Blood pressure elevated in the ED. -hold lisinopril/HCTZ in setting of renal insufficiency. -start amlodipine and adjust as needed; some elevation in blood pressure. Reevaluate labs. I will consider restarting home medications -clonidine as needed. Acute kidney injury Likely exacerbated by blood pressure meds. -hold home blood pressure meds. -IVFs. -creatinine trending down -follow BMP and avoid nephrotoxins. Hypothyroidism On levothyroxine. TSH 0.005 free T4 2.69 -levothyroxine has been decreased from 112mcg daily to 100 mcg daily -patient will need to follow up outpatient for further monitoring and adjustment PPx: Heparin Discussed with: Patient, nurse
--- NOTE | 2017-10-15 18:38 | MP ---
cc: Devon Lawrence MD DATE OF OPERATION: 10/15/2017 PREOPERATIVE DIAGNOSIS: Right internal carotid artery 90% stenosis. POSTOPERATIVE DIAGNOSIS: Right internal carotid artery 90% stenosis. OPERATIVE PROCEDURE: Right carotid endarterectomy and patch angioplasty. SURGEON: Devon Lawrence MD ANESTHESIA: General. ESTIMATED BLOOD LOSS: 100 mL DESCRIPTION OF PROCEDURE: The patient was prepped and draped in the usual fashion in the right breast. Sternocleidomastoid incision made, deepened down to the level of the carotid artery through the platysma. The common carotid, internal and external carotid arteries were carefully dissected with sharp and blunt dissection and then the umbilical tape with Yecenia retractor placed around each loosely. Hypoglossal nerve was carefully identified and preserved. Weitlaner retractor was placed in the upper arm, [employer] Nurse was placed. The patient was given 5000 units of heparin. A bulldog was applied to the internal carotid artery. An angled [place] at the common carotid artery and the vessels opened longitudinally with Gomez scissors. Immediately [place] shunt is placed and blood flow reestablished. At this point, the [place] dissector was used and plaque was dissected in the medial plane. Plaque is very short and measures only about 1 cm in length; however, it is extremely calcific and I could not even cut with scissors through it. The whole plaque was removed from the internal carotid artery, common carotid and then from the external carotid artery by using the cinch. Once this was done, the surface was cleaned out. Small debris was removed, and heparinized saline flushed and then a bovine 8 mm patch was brought to the field. It was cut to size and sewn in with a running 5-0 Prolene. Prior to completing the arterial closure, the [place] shunt was removed and then blood flow was reestablished in the usual order and fashion preventing distal embolization. Incision was irrigated with copious amounts of saline and meticulous hemostasis obtained. A small piece of Surgicel was placed over the angioplasty and then a 7 flat ROWAN placed in the incision. Incision was closed in layers with 0 Vicryl and 4-0 Monocryl. Benzoin and Steri-Strips applied. The patient tolerated the procedure well. The patient is neurologically fully intact in recovery room. Devon Lawrence MD SJ/ct/ll , 04:37 PM , 04:45 PM
--- NOTE | 2017-10-15 21:54 | ECG ---
Date Performed: 10/14/2017 Time Performed: 12:17:36 PTAGE: 77 years EKG: Sinus rhythm NORMAL ECG NO PREVIOUS TRACING DOCTOR: Josh Brewster Interpretating Date/Time 10/15/2017 21:53:38
[2017-10-16] MEDS: Levothyroxine 100 MCG Tablet PO SCH (05:07)
[2017-10-16 05:35] LABS: Hematocrit 27.5 % (35.0-46.0); Hemoglobin 9.4 gm/dL (11.6-15.3); Mean Corpuscular HGB Conc 34.4 % (32.0-36.0); Mean Corpuscular Hemoglobin 29.6 pg (27.0-34.0); Mean Corpuscular Volume 86.1 fL (80.0-100.0); Mean Platelet Volume 7.7 fL (7.0-11.0); Platelet Count 176 th/mm3 (150-450); Red Blood Count 3.19 mil/mm3 (4.00-5.30); Red Cell Distribution Width 13.3 % (11.6-17.2); White Blood Count 4.6 th/mm3 (4.0-11.0)
[2017-10-16 06:03] LABS: Calcium 8.7 mg/dL (8.5-10.1); Carbon Dioxide 28.4 meq/L (21.0-32.0); Potassium 4.6 meq/L (3.5-5.1)
[2017-10-16] MEDS: Aspirin 325 MG Tablet PO SCH (08:17)
[2017-10-16 08:37] VITALS: BP 117/50; RESP 24; TEMP 98.2; O2SAT 91
--- NOTE | 2017-10-16 09:49 | P.PNVS ---
Subjective Subjective/Hospital Course: Patient seen, full consult dictated 77-year-old lady with amaurosis fugax 3 and possible TIA to the right cerebral hemisphere. CT of the brain MRI of the brain are negative for stroke CTA of the neck pending and barring any surprises patient will be scheduled for right carotid endarterectomy next 48 hours In the meantime patient should be on heparin and Plavix and I will stop the heparin probably only a few hours prior to surgery Plan on R carotid endarterectomy on Friday Thanks J 09/13/2017 CTA of the neck carotids confirms the ultrasound established diagnosis Patient has tight right internal carotid artery stenosis in the range of 90% almost occluded and on the left there is probably 20-30% narrowing which is hemodynamically nonsignificant. In face of the very tight stenosis and near occlusion patient scheduled for right internal carotid endarterectomy tomorrow and will remain on heparin until just before the surgery Have discussed the risk and benefits of surgery with the patient 10/16/2017 Status post right carotid endarterectomy for 90% stenosis Incision is clean and dry Is awake alert oriented neurologically fully intact Did well throughout the night blood pressure remained normal and patient will be discharged today Objective Vital Signs / I&O: Vital Signs 10/15/17 12:00 10/15/17 16:16 10/15/17 16:30 Temperature 97.9 F 98.1 F Pulse Rate 89 75 79 Respiratory Rate 16 17 17 Blood Pressure 174/78 H 158/71 H 150/62 H Pulse Oximetry 97 100 99 10/15/17 16:45 10/15/17 17:00 10/15/17 17:15 Temperature Pulse Rate 80 79 81 Respiratory Rate 17 17 18 Blood Pressure 152/62 H 150/62 H 151/60 H Pulse Oximetry 99 99 98 10/15/17 17:30 10/15/17 17:45 10/15/17 20:00 Temperature 98.3 F 97.8 F Pulse Rate 82 100 H Respiratory Rate 18 20 Blood Pressure 147/62 H 153/65 H 150/69 H Pulse Oximetry 99 99 10/15/17 20:45 10/16/17 00:00 10/16/17 04:00 Temperature 97.6 F 97.8 F Pulse Rate 98 H 98 H Respiratory Rate 20 12 Blood Pressure 110/42 L 126/51 L Pulse Oximetry 98 96 97 10/16/17 07:54 10/16/17 08:00 Temperature 98.2 F Pulse Rate 97 H Respiratory Rate 24 Blood Pressure 117/50 L Pulse Oximetry 97 91 L Intake & Output 10/15/17 10/16/17 10/16/17 18:59 06:59 18:59 Intake Total 1470 / 1470 480 / 480 Output Total 140 / 140 20 / 20 Balance 1330 / 1330 460 / 460 Weight 83.4 kg 84.4 kg Intake: IV 250 / 250 Heparin/D5W 25,000 U/250 mL 25, 250 / 250 000 unit In 250 ml @ 1,000 UNITS/HR 10 mls/hr IV.CONT TITRATE PRN Rx#:[id number] Oral 120 / 120 480 / 480 Anesthesia Amount 1100 / 1100 Output: Estimated Blood Loss 100 / 100 Wound Drainage 40 / 40 20 / 20 # 1 Right Neck ROWAN Drain 40 / 40 20 20 Other: # Voids 1 4 Date of Last Bowel Movement 10/12/17 10/12/17 10/12/17 # Bowel Movements 0 Weight On Admission 83.4 kg Laboratory Results - last 24 hr 10/14/17 10/15/17 10/16/17 15:55 19:09 05:10 WBC RBC Hgb Hct MCV MCH MCHC RDW Plt Count MPV APTT 22.8 L D Sodium Potassium Chloride Carbon Dioxide Anion Gap BUN Creatinine Estimated GFR POC Glucose 137 H Random Glucose Calcium Blood Type O Positive Antibody Screen Negative MTS Gel Crossmatch See Detail 10/16/17 10/16/17 05:10 05:10 WBC 4.6 RBC 3.19 L Hgb 9.4 L Hct 27.5 L MCV 86.1 MCH 29.6 MCHC 34.4 RDW 13.3 Plt Count 176 MPV 7.7 APTT Sodium 144 Potassium 4.6 Chloride 108 H Carbon Dioxide 28.4 Anion Gap 8 BUN 21 H Creatinine 0.77 Estimated GFR 73 L POC Glucose Random Glucose 135 H Calcium 8.7 Blood Type Antibody Screen MTS Gel Crossmatch
[2017-10-16 10:11] VITALS: PULSE 101
--- NOTE | 2017-10-16 11:19 | P.DS ---
Date of admission: 10/13/17 15:40 Primary care physician: UNKNOWN Anticipated date of discharge: 10/16/17 Brief History from admission: The patient is a 77-year-old female with a past medical history significant for hypertension, hyperlipidemia and carotid disease who is presenting to the hospital with chronic vision changes. The patient says that starting in January she has had episodes of lightheadedness that seem to correlate with episodes of right eye visual changes. The patient said that sometimes while she is watching TV all of a sudden her right eye becomes clouded. She also describes sometimes seeing double vision out of the right eye. She says at one time she could not see anything out of the right eye for a period of 10-15 minutes. She says the symptoms come and go. She currently is asymptomatic. She says her vision in her right eye is completely normal at this time. She denies any problems with her left eye. She said she went to have her eye checked out on Friday so she went to an eye doctor and was told that everything was fine. The patient says she came to the hospital today because her son encouraged her after having another episode yesterday while fishing. The patient is currently completely asymptomatic. She says she has some chronic shakiness. She denies any strength disturbances or any sensation of numbness. She does endorse night sweats from time to time. She says she was told that her right carotid is 70% occluded and she is wondering if that has anything to do with her visual disturbance. DS: Diagnosis - Discharge Diagnosis (1) Carotid stenosis Status: Acute (2) HTN (hypertension) Status: Acute (3) Acquired lymphedema of lower extremity Status: Acute DS: Medications - Discharge Medications Prescriptions: clopidogrel [Plavix] 75 mg PO DAILY #30 tab DS: Summary Hospital Course: Carotid artery stenosis/ Visual changes Ongoing right eye changes starting in January, currently asymptomatic. Associated with light headedness. Recent manager housekeeping evaluation was normal. CT head unremarkable. The pt says she has a 70% blockage in her right carotid artery. She had several imaging studies done: Carotid Doppler Study 10/12/17 CONCLUSION: 1. Right Internal Carotid Artery: Findings indicate near occlusion. 2. Left Internal Carotid Artery: Findings indicate 50-69% stenosis. 3. Antegrade flow is identified in both vertebral arteries. Head MRI 10/12/17 CONCLUSION: 1. No evidence of acute infarct, hemorrhage, mass or edema. 2. Mild cerebral white matter T2 hyperintensities characteristic of mild microvascular ischemic change. Head CT 10/12/17 CONCLUSION: Negative CT Head non contrast. Head MRA 10/13/17 00:00 CONCLUSION: 1. Negative MRI of the brain. There is no major branch vessel occlusion. Neck CTA 10/13/17 CONCLUSION: 1. Dense calcification at the right carotid bulb region with a suspected significant stenosis. 2. Mild plaque at the left carotid bulb region without a significant stenosis. Echocardiogram EF 60-65%; trace regurgitation. Neurology and neurosurgery were consulted. The pt had a PT evaluation. She is s/p right CEA 10/15/17. She will continue Plavix. She declined home health care. She will follow up with neurosurgery as an outpt. HTN We initially held lisinopril/HCTZ in setting of renal insufficiency and started amlodipine. Her renal function improved. She will resume her home regimen at this time. Acute kidney injury Resolved with IVFs. Hypothyroidism On levothyroxine. TSH 0.005, free T4 2.69. Levothyroxine has been decreased from 112mcg daily to 100 mcg daily. Patient will need to follow up outpatient for further monitoring and adjustment. - Time Spent with Patient Total time spent providing and/or coordinating discharge services: Less than 30 minutes - Quality: VTE Deep Vein Thrombosis/Pulmonary Embolism Present on Admission: No Exam Vital signs: Vital Signs 10/15/17 12:00 10/15/17 16:16 10/15/17 16:30 Temperature 97.9 F 98.1 F Pulse Rate 89 75 79 Respiratory Rate 16 17 17 Blood Pressure 174/78 H 158/71 H 150/62 H Pulse Oximetry 97 100 99 10/15/17 16:45 10/15/17 17:00 10/15/17 17:15 Temperature Pulse Rate 80 79 81 Respiratory Rate 17 17 18 Blood Pressure 152/62 H 150/62 H 151/60 H Pulse Oximetry 99 99 98 10/15/17 17:30 10/15/17 17:45 10/15/17 20:00 Temperature 98.3 F 97.8 F Pulse Rate 82 100 H Respiratory Rate 18 20 Blood Pressure 147/62 H 153/65 H 150/69 H Pulse Oximetry 99 99 10/15/17 20:45 10/16/17 00:00 10/16/17 04:00 Temperature 97.6 F 97.8 F Pulse Rate 98 H 98 H Respiratory Rate 20 12 Blood Pressure 110/42 L 126/51 L Pulse Oximetry 98 96 97 10/16/17 07:54 10/16/17 08:00 10/16/17 10:00 Temperature 98.2 F Pulse Rate 97 H 101 H Respiratory Rate 24 Blood Pressure 117/50 L Pulse Oximetry 97 91 L Intake & Output 10/15/17 10/16/17 10/16/17 18:59 06:59 18:59 Intake Total 1470 / 1470 480 / 480 Output Total 140 / 140 20 / 20 Balance 1330 / 1330 460 / 460 Weight 83.4 kg 84.4 kg Intake: IV 250 / 250 Heparin/D5W 25,000 U/250 mL 25, 250 / 250 000 unit In 250 ml @ 1,000 UNITS/HR 10 mls/hr IV.CONT TITRATE PRN Rx#:[id number] Oral 120 / 120 480 / 480 Anesthesia Amount 1100 / 1100 Output: Estimated Blood Loss 100 / 100 Wound Drainage 40 / 40 20 / 20 # 1 Right Neck ROWAN Drain 40 / 40 20 / 20 Other: # Voids 1 4 Date of Last Bowel Movement 10/12/17 10/12/17 10/12/17 # Bowel Movements 0 Weight On Admission 83.4 kg Results Procedures completed during hospitalization: NONE Pending studies at discharge: Pending at discharge 10/15/17 16:52 Surgical [PTH] Routine Labs on day of discharge: Labs from last 24 hours 10/16/17 10/16/17 10/16/17 05:10 05:10 05:10 WBC 4.6 RBC 3.19 L Hgb 9.4 L Hct 27.5 L MCV 86.1 MCH 29.6 MCHC 34.4 RDW 13.3 Plt Count 176 MPV 7.7 APTT 22.8 L D Sodium 144 Potassium 4.6 Chloride 108 H Carbon Dioxide 28.4 Anion Gap 8 BUN 21 H Creatinine 0.77 Estimated GFR 73 L POC Glucose Random Glucose 135 H Calcium 8.7 Blood Type Antibody Screen MTS Gel Crossmatch 10/15/17 10/14/17 19:09 15:55 WBC RBC Hgb Hct MCV MCH MCHC RDW Plt Count MPV APTT Sodium Potassium Chloride Carbon Dioxide Anion Gap BUN Creatinine Estimated GFR POC Glucose 137 H Random Glucose Calcium Blood Type O Positive Antibody Screen Negative MTS Gel Crossmatch See Detail - Impressions ITS Impressions Carotid Doppler Study 10/12/17 00:00 CONCLUSION: 1. Right Internal Carotid Artery: Findings indicate near occlusion. 2. Left Internal Carotid Artery: Findings indicate 50-69% stenosis. 3. Antegrade flow is identified in both vertebral arteries. Head MRI 10/12/17 00:00 CONCLUSION: 1. No evidence of acute infarct, hemorrhage, mass or edema. 2. Mild cerebral white matter T2 hyperintensities characteristic of mild microvascular ischemic change. Head CT 10/12/17 14:28 CONCLUSION: Negative CT Head non contrast. . Head MRA 10/13/17 00:00 CONCLUSION: 1. Negative MRI of the brain. There is no major branch vessel occlusion. Neck CTA 10/13/17 00:00 CONCLUSION: 1. Dense calcification at the right carotid bulb region with a suspected significant stenosis. 2. Mild plaque at the left carotid bulb region without a significant stenosis. Discharge Plan - Discharge Disposition Patient Disposition: 01 Discharge Home - Discharge Condition Condition: Stable - Discharge Order Discharge Orders: Discharge Order (Routine); Ordered 10/16/17 Ordered By: Devon Lawrence - Discharge Details Anticipated Discharge Date: 10/16/17 - Physicians Team Primary Care Provider: UNKNOWN, Attending Provider: Lan Oropeza Other Providers: Any Lopez MD ; Devon Lawrence MD
== END 2017-10-16 16:24 | disposition home or self-care (01) ==
LOC: NEPE 10:29 → NEDA 10:29 → NEPGCP 18:15 → N06 10-14 00:55 → N03 10-15 16:21
PROVIDERS: ADMIT Hospitalist; ATTEND Hospitalist

== ENCOUNTER 2017-10-25 18:28 | Inpatient (IN) ==
--- NOTE | 2017-10-25 19:51 | ED ---
HPI General Chief complaint: Weakness Stated complaint: dizzy/gi Time Seen by Provider: 10/25/17 19:34 Source: patient and family Mode of arrival: wheelchair Limitations: no limitations History of Present Illness HPI Narrative: Patient is a 77-year-old female, past medical history significant for hypertension, chronic lymphedema of the bilateral lower extremities, carotid stenosis status post endarterectomy approximately 1.5 weeks ago, who presents with complaint of generalized weakness over the last several days. She states that she had been doing well and began to have dark stools over the last several days. She stopped taking her Plavix but the dark stools have persisted. She is also having generalized weakness with fatigue in addition to intermittent "almost blackouts." She states that she is intermittently feeling like she is going to pass out but not quite passing out. No focal numbness nor weakness. No vision changes. She has had chills with subjective fever. No chest pain, dyspnea, abdominal pain, back pain, headache. No worsening neck pain since her surgery. MD Complaint: generalized weakness Onset (ago): hour(s) Duration: constant Location: generalized Migration: none Severity: moderate Relieving factors: none Exacerbating factors: none Context: new medication Associated symptoms: dark stools Related Data Home Medications Medication Instructions Recorded Confirmed atorvastatin 20 mg PO DAILY 10/12/17 10/25/17 lisinopril-hydrochlorothiazide 1 tab PO DAILY 10/12/17 10/25/17 Previous Rx's Medication Instructions Recorded clopidogrel [Plavix] 75 mg PO DAILY #30 tab 10/16/17 levothyroxine [Synthroid] 100 mcg PO DAILY@0600 #30 tab 10/16/17 Allergies Allergy/AdvReac Type Severity Reaction Status Date / Time No Known Allergies Allergy Unverified 10/12/17 10:51 Review of Systems ROS: all other systems reviewed are negative [facility] Medical History Medical History Breast hematoma (Acute) Ear ache (Acute) Herniated disc (Acute) Lymphedema (Acute) Arthritis (Acute) High cholesterol (Acute) Carotid artery disease (Acute) Hypertension (Acute) Surgical History Surgical History Previous back surgery (Acute) H/O right knee surgery (Acute) Family History Family History Other Cirrhosis Tuberculosis Social History Social History Substance History: No History of Abuse Second Hand Smoke Exposure: No Smoking Status: Former smoker Tobacco Type: Cigarettes How Often Do You Have a Drink Containing Alcohol: Never Recent Travel in [facility] within the Last 8 Weeks: No Recent Out of Country Travel within the Last 8 Weeks: No Exam Narrative Exam Narrative: GENERAL: Ill appearing, pale elderly female SKIN: Focused skin assessment warm/dry. HEAD: Atraumatic. Normocephalic. EYES: Pupils equal and round. No scleral icterus. No injection or drainage. Pale conjunctivae. ENT: No nasal bleeding or discharge. Mucous membranes pink and moist. NECK: Trachea midline. No JVD. Scar on right side of neck from endarterectomy with Steri-Strips present. No drainage nor erythema nor warmth. CARDIOVASCULAR: Regular rate and rhythm. No murmur appreciated. Intact and equal peripheral pulses. RESPIRATORY: No accessory muscle use. Clear to auscultation. Breath sounds equal bilaterally. GASTROINTESTINAL: Abdomen soft, non-tender, nondistended. Hepatic and splenic margins not palpable. exam reveals melena. Guaiac positive. MUSCULOSKELETAL: No obvious deformities. No clubbing. No cyanosis. Chronic bilateral lower extremity edema. NEUROLOGICAL: Awake and alert. No obvious cranial nerve deficits. Normal speech. Generalized but not focal weakness. No changes in sensation. No visual field deficits. PSYCHIATRIC: Appropriate mood and affect; insight and judgment normal. Course Initial Documented Vital Signs Temperature 97.6 F 10/25/17 18:34 Pulse Rate 124 H 10/25/17 18:34 Respiratory Rate 20 10/25/17 18:34 Blood Pressure 159/58 H 10/25/17 18:34 Pulse Oximetry 100 10/25/17 18:34 Last Documented Vital Signs Temperature 98.1 F 10/25/17 23:12 Pulse Rate 85 10/25/17 23:12 Respiratory Rate 18 10/25/17 23:12 Blood Pressure 126/61 10/25/17 23:12 Pulse Oximetry 100 10/25/17 22:56 Medical Decision Making MDM Narrative Medical decision making narrative: Patient is a 77-year-old female who presents with complaint of generalized weakness after having a carotid endarterectomy. She is on Plavix but has stopped taking it secondary to having dark stools. She is hemodynamically stable but does have melena on exam. Labs revealed anemia with a hemoglobin of 7 as well as a UTI. She has been given 2 units packed red blood cells in addition to 2 g of Rocephin after cultures were drawn. She has been accepted for admission by Dr. Newman, hospitalist on-call, for further evaluation and management. Medical Screen Exam Complete: Yes Emergency Medical Condition: Yes Differential Diagnosis Differential Diagnosis: Differential diagnosis includes but is not limited to symptomatic anemia, TIA, sepsis. Medical Records Medical records reviewed: Yes I reviewed the patient's medical records. Lab Data Lab results reviewed: Yes I reviewed the patient's lab results. Result diagrams: 10/25/17 20:15 10/25/17 20:15 Lab Results 10/25/17 10/25/17 10/25/17 Range/Units 20:15 20:15 20:15 WBC (4.0-11.0) th/mm3 RBC (4.00-5.30) mil/mm3 Hgb (11.6-15.3) gm/dL Hct (35.0-46.0) % MCV (80.0-100.0) fL MCH (27.0-34.0) pg MCHC (32.0-36.0) % RDW (11.6-17.2) % Plt Count (150-450) th/mm3 MPV (7.0-11.0) fL Neut % (Auto) (16.0-70.0) % Lymph % (Auto) (9.0-44.0) % [place] % (Auto) (0.0-8.0) % Eos % (Auto) (0.0-4.0) % Baso % (Auto) (0.0-2.0) % Neut # (Auto) (1.8-7.7) th/mm3 Lymph # (Auto) (1.0-4.8) th/mm3 [place] # (Auto) (0.0-0.9) th/mm3 Eos # (Auto) (0.0-0.4) th/mm3 Baso # (Auto) (0.0-0.2) th/mm3 WBC Differential Differential Comment PT (9.8-11.6) sec INR Ratio APTT (24.3-30.1) sec Sodium (136-145) meq/L Potassium (3.5-5.1) meq/L Chloride (98-107) meq/L Carbon Dioxide (21.0-32.0) meq/L Anion Gap (5-15) meq/L BUN (7-18) mg/dL Creatinine (0.50-1.00) mg/dL Estimated GFR (>89) mL/min Random Glucose (74-106) mg/dL Lactic Acid 1.3 (0.4-2.0) mmol/L Calcium (8.5-10.1) mg/dL Total Bilirubin (0.2-1.0) mg/dL AST (15-37) U/L ALT (10-53) U/L Alkaline Phosphatase (45-117) U/L Troponin I (0.02-0.05) ng/mL B-Natriuretic Peptide 31 (0-100) pg/mL Total Protein (6.4-8.2) g/dL Albumin (3.4-5.0) g/dL TSH Less than 0.005 L (0.358-3.740) uIU/mL Urine Color (Yellw/Straw) Urine Clarity (Clear) Urine pH (5.0-8.5) Ur Specific [place] (1.002-1.035) Urine Protein (Neg-Trace) mg/dL Urine Glucose (UA) (Negative) mg/dL Urine Ketones (Negative) mg/dL Urine Occult Blood (Negative) Urine Nitrate (Negative) Urine Bilirubin (Negative) Urine Urobilinogen (Less than 2) mg/dL Ur Leukocyte Esterase (Negative) Urine RBC (0-3) /hpf Urine WBC (0-5) /hpf Urine WBC Clumps (None) Ur Squamous Epith Cells (0-5) /hpf Hyaline Casts (0-3) /lpf Urine Mucus (Occasional) /lpf Micro UA Comment Ur Microscopic Review Urine Culture Comments Blood Type Antibody Screen MTS Gel Crossmatch 10/25/17 10/25/17 10/25/17 Range/Units 20:15 20:15 20:15 WBC 8.6 (4.0-11.0) th/mm3 RBC 2.46 L (4.00-5.30) mil/mm3 Hgb 7.2 L (11.6-15.3) gm/dL Hct 21.6 L (35.0-46.0) % MCV 87.7 (80.0-100.0) fL MCH 29.1 (27.0-34.0) pg MCHC 33.2 (32.0-36.0) % RDW 13.4 (11.6-17.2) % Plt Count 222 (150-450) th/mm3 MPV 8.4 (7.0-11.0) fL Neut % (Auto) 76.9 H (16.0-70.0) % Lymph % (Auto) 15.1 (9.0-44.0) % [place] % (Auto) 6.6 (0.0-8.0) % Eos % (Auto) 0.8 (0.0-4.0) % Baso % (Auto) 0.6 (0.0-2.0) % Neut # (Auto) 6.6 (1.8-7.7) th/mm3 Lymph # (Auto) 1.3 (1.0-4.8) th/mm3 [place] # (Auto) 0.6 (0.0-0.9) th/mm3 Eos # (Auto) 0.1 (0.0-0.4) th/mm3 Baso # (Auto) 0.1 (0.0-0.2) th/mm3 WBC Differential . Differential Comment Auto diff final PT 11.2 (9.8-11.6) sec INR 1.1 Ratio APTT 21.0 L (24.3-30.1) sec Sodium 144 (136-145) meq/L Potassium 4.2 (3.5-5.1) meq/L Chloride 110 H (98-107) meq/L Carbon Dioxide 23.3 (21.0-32.0) meq/L Anion Gap 11 (5-15) meq/L BUN 62 H (7-18) mg/dL Creatinine 1.09 H (0.50-1.00) mg/dL Estimated GFR 49 L (>89) mL/min Random Glucose 127 H (74-106) mg/dL Lactic Acid (0.4-2.0) mmol/L Calcium 8.8 (8.5-10.1) mg/dL Total Bilirubin 0.3 (0.2-1.0) mg/dL AST 14 L (15-37) U/L ALT 17 (10-53) U/L Alkaline Phosphatase 65 (45-117) U/L Troponin I 0.02 (0.02-0.05) ng/mL B-Natriuretic Peptide (0-100) pg/mL Total Protein 6.0 L (6.4-8.2) g/dL Albumin 2.9 L (3.4-5.0) g/dL TSH (0.358-3.740) uIU/mL Urine Color (Yellw/Straw) Urine Clarity (Clear) Urine pH (5.0-8.5) Ur Specific [place] (1.002-1.035) Urine Protein (Neg-Trace) mg/dL Urine Glucose (UA) (Negative) mg/dL Urine Ketones (Negative) mg/dL Urine Occult Blood (Negative) Urine Nitrate (Negative) Urine Bilirubin (Negative) Urine Urobilinogen (Less than 2) mg/dL Ur Leukocyte Esterase (Negative) Urine RBC (0-3) /hpf Urine WBC (0-5) /hpf Urine WBC Clumps (None) Ur Squamous Epith Cells (0-5) /hpf Hyaline Casts (0-3) /lpf Urine Mucus (Occasional) /lpf Micro UA Comment Ur Microscopic Review Urine Culture Comments Blood Type Antibody Screen MTS Gel Crossmatch 10/25/17 10/25/17 10/25/17 Range/Units 20:40 20:45 21:12 WBC (4.0-11.0) th/mm3 RBC (4.00-5.30) mil/mm3 Hgb (11.6-15.3) gm/dL Hct (35.0-46.0) % MCV (80.0-100.0) fL MCH (27.0-34.0) pg MCHC (32.0-36.0) % RDW (11.6-17.2) % Plt Count (150-450) th/mm3 MPV (7.0-11.0) fL Neut % (Auto) (16.0-70.0) % Lymph % (Auto) (9.0-44.0) % [place] % (Auto) (0.0-8.0) % Eos % (Auto) (0.0-4.0) % Baso % (Auto) (0.0-2.0) % Neut # (Auto) (1.8-7.7) th/mm3 Lymph # (Auto) (1.0-4.8) th/mm3 [place] # (Auto) (0.0-0.9) th/mm3 Eos # (Auto) (0.0-0.4) th/mm3 Baso # (Auto) (0.0-0.2) th/mm3 WBC Differential Differential Comment PT (9.8-11.6) sec INR Ratio APTT (24.3-30.1) sec Sodium (136-145) meq/L Potassium (3.5-5.1) meq/L Chloride (98-107) meq/L Carbon Dioxide (21.0-32.0) meq/L Anion Gap (5-15) meq/L BUN (7-18) mg/dL Creatinine (0.50-1.00) mg/dL Estimated GFR (>89) mL/min Random Glucose (74-106) mg/dL Lactic Acid (0.4-2.0) mmol/L Calcium (8.5-10.1) mg/dL Total Bilirubin (0.2-1.0) mg/dL AST (15-37) U/L ALT (10-53) U/L Alkaline Phosphatase (45-117) U/L Troponin I (0.02-0.05) ng/mL B-Natriuretic Peptide (0-100) pg/mL Total Protein (6.4-8.2) g/dL Albumin (3.4-5.0) g/dL TSH (0.358-3.740) uIU/mL Urine Color Yellow (Yellw/Straw) Urine Clarity Hazy H (Clear) Urine pH 5.0 (5.0-8.5) Ur Specific [place] 1.016 (1.002-1.035) Urine Protein Negative (Neg-Trace) mg/dL Urine Glucose (UA) Negative (Negative) mg/dL Urine Ketones Negative (Negative) mg/dL Urine Occult Blood Small H (Negative) Urine Nitrate Negative (Negative) Urine Bilirubin Negative (Negative) Urine Urobilinogen Less than 2 (Less than 2) mg/dL Ur Leukocyte Esterase Large H (Negative) Urine RBC 2 (0-3) /hpf Urine WBC 168 H (0-5) /hpf Urine WBC Clumps Occasional H (None) Ur Squamous Epith Cells 2 (0-5) /hpf Hyaline Casts 3 (0-3) /lpf Urine Mucus Few H (Occasional) /lpf Micro UA Comment Culture indicated Ur Microscopic Review Not Reportable Urine Culture Comments Culture indicated Blood Type O Positive Antibody Screen Negative MTS Gel Crossmatch See Detail Imaging Data Radiologist's impression: Chest X-Ray 10/25/17 19:34 CONCLUSION: No acute cardiopulmonary disease. Head CT 10/25/17 19:34 CONCLUSION: 1. Negative noncontrast head CT. . Head CTA 10/25/17 19:34 CONCLUSION: 1. Unremarkable examination. Neck CTA 10/25/17 19:34 CONCLUSION: 1. Postsurgical changes consistent with recent right carotid endarterectomy. There is mild irregularity with no significant narrowing. 2. Left carotid calcification with approximately 50% stenosis in the proximal internal carotid artery. Discharge Plan Discharge Disposition Patient Disposition: 30 Still Patient Discharge Condition Condition: Stable Discharge Details Diagnosis: Symptomatic anemia, Acute blood loss anemia, Acute UTI, Acute GI bleeding Physicians Team ED Provider: Carla Hernandez Primary Care Provider: UNKNOWN, Attending Provider: Alicia Newman Other Providers: Heidi Blanco Status ED Status: Left Department Discharge Information Discharge Date/Time: 10/25/17 23:43
[2017-10-25] MEDS ORDERED: Sodium Chlor 0.9% Inj 500 ML IV.SIG SCH (20:00)
--- NOTE | 2017-10-25 20:10 | XR ---
EXAM DATE: 10/25/2017 8:04 PM EDT AGE/SEX: 77 years / Female INDICATIONS: . Syncope. Dizziness and weakness post recent carotid surgery. CLINICAL DATA: This is the patient's initial encounter. Patient reports that signs and symptoms have been present for 1 week and indicates a pain score of 0/10. MEDICAL/SURGICAL HISTORY: . Hypertension. Cardiovascular disease. Parkinson's disease. . Bucio tid surgery. COMPARISON: No prior exams available for comparison. FINDINGS: PA and lateral views of the chest demonstrate the lungs to be symmetrically aerated without evidence of mass, infiltrate or effusion. Atherosclerotic calcifications are present in the aorta. The heart s ize is at the upper limits of normal with no perihilar edema. Osseous structures are intact. There ar e multiple overlying electrocardiogram leads. CONCLUSION: No acute cardiopulmonary disease. Electronically signed by: Lan Sol MD 10/25/2017 8:09 PM EDT
[2017-10-25 20:48] LABS: Baso # (Auto) 0.1 th/mm3 (0.0-0.2); Baso % (Auto) 0.6 % (0.0-2.0); Eos # (Auto) 0.1 th/mm3 (0.0-0.4); Eos % (Auto) 0.8 % (0.0-4.0); Hematocrit 21.6 % (35.0-46.0); Hemoglobin 7.2 gm/dL (11.6-15.3); Lymph # (Auto) 1.3 th/mm3 (1.0-4.8); Lymph % (Auto) 15.1 % (9.0-44.0); Mean Corpuscular HGB Conc 33.2 % (32.0-36.0); Mean Corpuscular Hemoglobin 29.1 pg (27.0-34.0); Mean Corpuscular Volume 87.7 fL (80.0-100.0); Mean Platelet Volume 8.4 fL (7.0-11.0); Mono # (Auto) 0.6 th/mm3 (0.0-0.9); Mono % (Auto) 6.6 % (0.0-8.0); Neut # (Auto) 6.6 th/mm3 (1.8-7.7); Neut % (Auto) 76.9 % (16.0-70.0); Platelet Count 222 th/mm3 (150-450); Red Blood Count 2.46 mil/mm3 (4.00-5.30); Red Cell Distribution Width 13.4 % (11.6-17.2); White Blood Count 8.6 th/mm3 (4.0-11.0)
[2017-10-25 20:51] LABS: Albumin 2.9 g/dL (3.4-5.0); Anion Gap 11 meq/L (5-15); Aspartate Aminotransferase 14 U/L (15-37); Blood Urea Nitrogen 62 mg/dL (7-18); Calcium 8.8 mg/dL (8.5-10.1); Carbon Dioxide 23.3 meq/L (21.0-32.0); Chloride 110 meq/L (98-107); Glomerular Filtration Rate 49 mL/min (>89); Glucose,Random 127 mg/dL (74-106); Potassium 4.2 meq/L (3.5-5.1); Sodium 144 meq/L (136-145)
[2017-10-25 20:52] LABS: Alanine Aminotransferase 17 U/L (10-53)
[2017-10-25 20:56] LABS: Alkaline Phosphatase 65 U/L (45-117); Troponin I 0.02 ng/mL (0.02-0.05)
[2017-10-25] MEDS ORDERED: Sodium Chlor 0.9% Inj 250 ML IV.SIG SCH (21:00)
[2017-10-25 21:04] LABS: INR 1.1 Ratio; Prothrombin Time 11.2 sec (9.8-11.6)
[2017-10-25] MEDS ORDERED: Pantoprazole Inj 40 MG Vial IV.PUSH ONE (21:27)
[2017-10-25 21:29] LABS: Bilirubin,Urine Negative (Negative); Clarity,Urine Hazy (Clear); Color,Urine Yellow (Yellw/Straw); Glucose,Urine (UA) Negative (Negative); Hyaline Casts,Urine 3 /lpf (0-3); Leukocyte Esterase,Urine Large (Negative); Mucus,Urine Few /lpf (Occasional); Nitrite,Urine Negative (Negative); Specific Gravity,Urine 1.016 (1.002-1.035); Squamous Epithelial Cell,Urine 2 /hpf (0-5)
--- NOTE | 2017-10-25 22:09 | CT ---
EXAM DATE: 10/25/2017 10:00 PM EDT AGE/SEX: 77 years / Female INDICATIONS: Syncopal episode. Endarterectomy 1 week ago. CLINICAL DATA: This is the patient's initial encounter. Patient reports that signs and symptoms have been present for 1 day and indicates a pain score of 0/10. MEDICAL/SURGICAL HISTORY: Cardiovascular disease. Hypertension. Parkinson's disease. Carotid enda rterectomy. RADIATION DOSE: 30.66 CTDI (mGy) COMPARISON: [facility] [place] W/O CONTRAST, 10/12/2017. . TECHNIQUE: CT of the head without contrast. Using automated exposure control and adjustment of the mA and/or kV according to patient size, radiation dose was kept as low as reasonably achievable to ob tain optimal diagnostic quality images. DICOM format image data is available electronically for revi ew and comparison. FINDINGS: Cerebrum: The ventricles are normal for age. No evidence of midline shift, mass lesion, hemorrhage or acute infarction. No extraaxial fluid collections are seen. Posterior Fossa: The cerebellum and brainstem are intact. The 4th ventricle is midline. The cerebe llopontine angle is unremarkable. Extracranial: The visualized portion of the orbits is intact. Skull: The calvaria is intact. No evidence of skull fracture. CONCLUSION: 1. Negative noncontrast head CT. . Electronically signed by: Lan Sol MD 10/25/2017 10:07 PM EDT
[2017-10-25] MEDS ORDERED: Bisacodyl 10 MG Supp RECTAL PRN (22:22)
[2017-10-25] MEDS ORDERED: Acetaminophen 325 MG Tablet PO PRN (22:22)
--- NOTE | 2017-10-25 22:28 | CT ---
EXAM DATE: 10/25/2017 10:14 PM EDT AGE/SEX: 77 years / Female INDICATIONS: Syncopal episode. Post endarterectomy. CLINICAL DATA: This is the patient's initial encounter. Patient reports that signs and symptoms have been present for 1 day and indicates a pain score of 0/10. MEDICAL/SURGICAL HISTORY: Cardiovascular disease. Hypertension. Parkinson's disease. Carotid enda rterectomy. RADIATION DOSE: 26.11 CTDI (mGy) ; Combined studies COMPARISON: [facility] – [place], [place] HEAD W/O CONTRAST, 10/25/2017. . TECHNIQUE: Volumetric scanning was performed using a multi-row detector CT scanner during bolus infu [place] of 100 ml Omnipaque 350 (iohexol) nonionic water-soluble contrast as a cumulative dose for mult iple exams. The data was post processed with a variety of visualization algorithms including full v olume maximum intensity projection, multi-planar sliding thin slab reformation, curved planar reforma tion, and surface rendering techniques. Using automated exposure control and adjustment of the mA an d/or kV according to patient size, radiation dose was kept as low as reasonably achievable to obtain optimal diagnostic quality images. DICOM format image data is available electronically for review an d comparison. FINDINGS: There is excellent visualization of the major intracranial arteries out to the second-order branch ve ssels. There is no evidence for aneurysm, vessel truncation or stenosis, and no evidence for vascula r malformation. CONCLUSION: 1. Unremarkable examination. Electronically signed by: Lan Sol MD 10/25/2017 10:27 PM EDT
--- NOTE | 2017-10-25 22:35 | P.HPIM ---
History of Present Illness Primary Care Physician: UNKNOWN History of Present Illness: This is a 77-year-old female with a PMH of HTN, Hyperlipidemia, Lymphedema, CAD and Right CEA who presented to the ER w/ complaints of dizziness, weakness and melena. Recent admit 10/13- for dizziness and visual changes, found to have severe right carotid occlusion, s/p Right CEA by Dr. Cavanaugh on 10/15/17 and d/c' d on Plavix 75mg qd. States she took Plavix "for a few days", however started to have weakness/dizziness in addition to melena and stopped taking Plavix approx 4-5 days ago. Denies fever, chills, chest pain, nausea, vomiting or diarrhea. No h/o GI Bleed in the past. On arrival, BP 126/51, HR 98, O2 sat 97 % on RA, Afebrile. Hemoglobin 7.2, previously 9.4 on 10/16/2017. INR 1.1. Creatinine 1.09, previously 0.77 on 10/16/2017. UA positive for UTI. Hemoccult +. S/p Rocephin in the ER, 2u pRBC pending transfusion. - Diagnosis (1) GI bleed (2) Symptomatic anemia (3) UTI (urinary tract infection) (4) S/P carotid endarterectomy (5) ALLEN (acute kidney injury) Inpatient Certification: I certify that the inpatient services were ordered in accordance with Medicare regulations governing the order. This includes certification that hospital inpatient services are reasonable and necessary and in the case of services not specified as inpatient-only under 42 CFR 419.22(n), that they are appropriately provided as inpatient services in accordance to with the 2-midnight benchmark under 43 CFR 412.3(e) Estimated Total Length of Stay (Days): 2 Plans for Post Hospital Care: Not yet determined Review of Systems PAST FAMILY HISTORY: Reviewed. No h/o DM or CAD All other systems reviewed negative except as stated in HPI PMFSH - History History Provided By: Patient - Medical History Medical History: Medical History (Last Reviewed 10/25/17 @ 19:48 by Carla Hernandez MD) Breast hematoma (Acute) Ear ache (Acute) Herniated disc (Acute) Lymphedema (Acute) Arthritis (Acute) High cholesterol (Acute) Carotid artery disease (Acute) Hypertension (Acute) - Surgical History Surgical History: Surgical History (Last Reviewed 10/25/17 @ 19:48 by Carla Hernandez MD) Previous back surgery (Acute) H/O right knee surgery (Acute) - Family History Family History: Family History (Last Reviewed 10/25/17 @ 19:48 by Carla Hernandez MD) Other Cirrhosis Tuberculosis - Tobacco History Second Hand Smoke Exposure: No Smoking Status: Former smoker - Alcohol History How Often Do You Have a Drink Containing Alcohol: Never - Substance Use History Substance History: No History of Abuse - Travel History Recent Travel in the [place] Within the Last 8 Weeks: No Recent Travel Out of the Country Within the Last 8 Weeks: No - Immunization History Tetanus Immunization: Unsure Hx Influenza Vaccine This Season: Yes Medications and Allergies Active Medications: Active Medications Acetaminophen (Tylenol) 650 mg PO Q4H PRN PRN Reason: Temp > 100.4 Al Hydroxide/Mg Hydroxide (Milk Of Magnesia Liq) 30 ml PO Q12H PRN PRN Reason: Mild Constipation Atorvastatin Calcium (Lipitor) 20 mg PO DAILY RODGER Bisacodyl (Dulcolax Supp) 10 mg RECTAL DAILY PRN PRN Reason: SEVERE CONSITIPATION Sodium Chloride (Ns Inj) 500 mls @ 0 mls/hr IV.SIG BOLUS RODGER Last Infusion: 10/25/17 22:09 Dose: Infused Sodium Chloride (Ns Inj) 250 mls @ 15 mls/hr IV.SIG ONCE RODGER Stop: 10/26/17 13:39 Ceftriaxone Sodium 1,000 mg/ (Sodium Chloride) 100 mls @ 200 mls/hr IV.SIG Q24H RODGER Lactulose (Lactulose Liq) 30 ml PO DAILY PRN PRN Reason: SEVERE CONSITIPATION Levothyroxine Sodium (Synthroid) 100 mcg PO DAILY@0600 RODGER Ondansetron HCl (Zofran Inj) 4 mg IV.PUSH Q6H PRN PRN Reason: NAUSEA OR VOMITING Senna/Docusate Sodium (Miriam-Colace) 1 tab PO BID RODGER Sennosides (Senokot) 17.2 mg PO Q12H PRN PRN Reason: Moderate Constipation Sodium Chloride (Ns Flush) 2 ml IV.FLUSH PRN PRN PRN Reason: FLUSH AFTER USING IV ACCESS Allergies Allergy/AdvReac Type Severity Reaction Status Date / Time No Known Allergies Allergy Unverified 10/12/17 10:51 Home Medications Medication Instructions Recorded Confirmed Type atorvastatin 20 mg PO DAILY 10/12/17 10/25/17 History lisinopril-hydrochlorothiazide 1 tab PO DAILY 10/12/17 10/25/17 History Exam Vital signs: Vital Signs 10/25/17 18:34 10/25/17 19:39 Temperature 97.6 F Pulse Rate 124 H 83 Respiratory Rate 20 20 Blood Pressure 159/58 H Pulse Oximetry 100 100 Intake & Output 10/25/17 10/25/17 10/26/17 06:59 18:59 06:59 Intake Total 500 / 500 Balance 500 / 500 Weight 81.647 kg Intake: IV 500 / 500 NS Inj 500 ML @ Wide Open IV. 500 / 500 SIG BOLUS RODGER Rx#:[id number] Narrative: PE: GENERAL: Extremely pleasant elderly white female in no acute distress. SKIN: Focused skin assessment warm and dry. HEENT: PERRLA, EOMI. No scleral icterus or conjunctival pallor. No lid lag or facial droop. Right neck w/ steri strips intact, no active bleeding/drainage. CARDIOVASCULAR: Regular rate and rhythm. No obvious murmurs to auscultation. No chest tenderness to palpation. RESPIRATORY: No obvious rhonchi or wheezing. Clear to auscultation. Breath sounds equal bilaterally. GASTROINTESTINAL: Abdomen soft, non-tender, nondistended. BS normal. MUSCULOSKELETAL: Extremities without clubbing, cyanosis, or edema. No obvious deformities. NEUROLOGICAL: Awake, alert and oriented x4. No focal neurologic deficits. Moving both upper and lower extremities spontaneously. PSYCHIATRIC: Appropriate mood and affect. Insight and judgment normal. Results - Labs CBC & Chem 7: 10/25/17 20:15 10/25/17 20:15 Labs: Short CBC 10/25/17 Range/Units 20:15 WBC 8.6 (4.0-11.0) th/mm3 Hgb 7.2 L (11.6-15.3) gm/dL Hct 21.6 L (35.0-46.0) % Plt Count 222 (150-450) th/mm3 BMP 10/25/17 20:15 Sodium 144 Potassium 4.2 Chloride 110 H Carbon Dioxide 23.3 BUN 62 H Creatinine 1.09 H Calcium 8.8 Cardiac Enzymes 10/25/17 Range/Units 20:15 Troponin I 0.02 (0.02-0.05) ng/mL Liver Function 10/25/17 Range/Units 20:15 Total Bilirubin 0.3 (0.2-1.0) mg/dL AST 14 L (15-37) U/L ALT 17 (10-53) U/L Alkaline Phosphatase 65 (45-117) U/L Albumin 2.9 L (3.4-5.0) g/dL Urine 10/25/17 Range/Units 20:40 Urine Color Yellow (Yellw/Straw) Urine Clarity Hazy H (Clear) Urine pH 5.0 (5.0-8.5) Ur Specific [place] 1.016 (1.002-1.035) Urine Protein Negative (Neg-Trace) mg/dL Urine Glucose (UA) Negative (Negative) mg/dL - Imaging Impressions Chest X-Ray 10/25/17 19:34 CONCLUSION: No acute cardiopulmonary disease. Head CT 10/25/17 19:34 CONCLUSION: 1. Negative noncontrast head CT. . Head CTA 10/25/17 19:34 CONCLUSION: 1. Unremarkable examination. Caprini VTE Risk Assessment Caprini VTE Risk Assessment: No/Low Risk (score <= 1) VTE Pharmacological Exception Reason: Active bleeding Caprini Risk Assessment Model: Point Value = 1 Point Value = 2 Point Value = 3 Point Value = 5 Age 41-60 Minor surgery BMI > 25 kg/m2 Swollen legs Varicose veins or History of unexplained or recurrent spontaneous Oral contraceptives or hormone replacement Sepsis (< 1 month) Serious lung disease, including pneumonia (< 1 month) Abnormal pulmonary function Acute myocardial infarction Congestive heart failure (< 1 month) History of inflammatory bowel disease Medical patient at bed rest Age 61-74 Arthroscopic surgery Major open surgery (> 45 min) Laparoscopic surgery (> 45 min) Malignancy Confined to bed (> 72 hours) Immobilizing plaster cast Central venous access Age >= 75 History of VTE Family history of VTE Factor V Leiden Prothrombin [id number] Lupus anticoagulant Anticardiolipin antibodies Elevated serum homocysteine Heparin-induced thrombocytopenia Other congenital or acquired thrombophilia Stroke (< 1 month) Elective arthroplasty Hip, pelvis, or leg fracture Acute spinal cord injury (< 1 month) Prophylaxis Regimen: Total Risk Factor Score Risk Level Prophylaxis Regimen 0-1 Low Early ambulation 2 Moderate Order ONE of the following: *Sequential Compression Device (SCD) *Heparin 5000 units SQ BID 3-4 Higher Order ONE of the following medications: *Heparin 5000 units SQ TID *Enoxaparin/Lovenox 40 mg SQ daily (WT < 150 kg, CrCl > 30 mL/min) *Enoxaparin/Lovenox 30 mg SQ daily (WT < 150 kg, CrCl > 10-29 mL/min) *Enoxaparin/Lovenox 30 mg SQ BID (WT < 150 kg, CrCl > 30 mL/min) AND/OR *Sequential Compression Device (SCD) 5 or more Highest Order ONE of the following medications: *Heparin 5000 units SQ TID (Preferred with Epidurals) *Enoxaparin/Lovenox 40 mg SQ daily (WT < 150 kg, CrCl > 30 mL/min) *Enoxaparin/Lovenox 30 mg SQ daily (WT < 150 kg, CrCl > 10-29 mL/min) *Enoxaparin/Lovenox 30 mg SQ BID (WT < 150 kg, CrCl > 30 mL/min) AND *Sequential Compression Device (SCD) Assessment and Plan - Assessment (1) GI bleed Code(s): K92.2 - Gastrointestinal hemorrhage, unspecified Status: Acute (2) Symptomatic anemia Code(s): D64.9 - Anemia, unspecified Status: Acute (3) UTI (urinary tract infection) Code(s): N39.0 - Urinary tract infection, site not specified Status: Acute (4) S/P carotid endarterectomy Code(s): Z98.890 - Other specified postprocedural states Status: Acute (5) ALLEN (acute kidney injury) Code(s): N17.9 - Acute kidney failure, unspecified Status: Acute - Plan A/P: 1. GI Bleed: on Plavix for recent Right CEA, now w/ melena, Hemoccult +. Consult GI for further evaluation/intervention, hold Plavix for now, repeat Hgb/ Hct after transfusion. Hemodynamically stable at this time. 2. Symptomatic Anemia: secondary to above, Hgb 7.2, previously 9.4 on 10/16/17 , +dizziness/lightheadedness. Transfuse as above, repeat Hgb/Hct after transfusion. 3. UTI: U/a w/ UTI, s/p Rocephin, will continue IV Abx, follow up cultures, monitor I/O. 4. ALLEN: Creatinine 1.09, previously 0.77 on 10/16/17, IVF for hydration, repeat labs in am, monitor I/O. 5. S/p Right CEA: Recent admit 10/13-10/16/17 for dizziness/visual changes, + right carotid stenosis, s/p Right CEA by Dr. Cavanaugh on 10/15/17, steri-strips intact, wound healing, will consult Dr. Cavanaugh as needed for further eval/recommendations on anticoagulation in light of acute GI Bleed. 6. DVT Prophylaxis: Pharmacologic contraindication due to GI Bleed 7. Social work for d/c planning as needed 8. Case discussed w/ ER physician at length, labs/records/imaging reviewed by me.
--- NOTE | 2017-10-25 22:37 | CT ---
EXAM DATE: 10/25/2017 10:19 PM EDT AGE/SEX: 77 years / Female INDICATIONS: Syncopal episode. Post endarterectomy CLINICAL DATA: This is the patient's initial encounter. Patient reports that signs and symptoms have been present for 1 day and indicates a pain score of 0/10. MEDICAL/SURGICAL HISTORY: Cardiovascular disease. Hypertension. Parkinson's disease. Carotid enda rterectomy. RADIATION DOSE: 26.11 CTDI (mGy) ; Combined studies COMPARISON: [facility], CTA NECK W CONTRAST W 3D, 10/13/2017. . TECHNIQUE: Volumetric scanning was performed using a multirow detector CT scanner during bolus infus ion of 100 ml Omnipaque 350 (iohexol) nonionic water-soluble contrast as a cumulative dose for multi ple exams. The data was postprocessed with a variety of visualization algorithms including full-vol ume maximum intensity projection, multiplanar sliding thin-slab reformation, curved-planar reformatio n, and surface-rendering techniques. Using automated exposure control and adjustment of the mA and/o r kV according to patient size, radiation dose was kept as low as reasonably achievable to obtain opt imal diagnostic quality images. DICOM format image data is available electronically for review and c omparison. FINDINGS: Aortic Arch: There is a three-vessel origin of the great vessels from the aorta. No evidence of ost ial narrowing Right Carotid: The common carotid artery is intact. There are postsurgical changes status post carot id endarterectomy with multiple adjacent surgical clips and brea. There is a small gas collection adjacent to the carotid bulb region. There is a small amount of fluid and/or postsurgical change. The carotid bulb has a normal configuration with mild irregularity and no significant narrowing. The int ernal carotid artery lumen is smooth without stenosis. The external carotid artery is intact. Left Carotid: The common carotid artery is intact. The carotid bulb demonstrates mild to moderate c alcification and there is mild to moderate calcification with approximately 50% stenosis in the proxi mal internal carotid artery.. The external carotid artery is intact. Vertebrals: The vertebral arteries have a symmetric diameter. No stenotic lesions are seen. Percent stenosis is calculated using the diameter of the stenotic region over the diameter of the nor mal distal internal carotid artery. CONCLUSION: 1. Postsurgical changes consistent with recent right carotid endarterectomy. There is mild irregular ity with no significant narrowing. 2. Left carotid calcification with approximately 50% stenosis in the proximal internal carotid arter y. Electronically signed by: Lan Sol MD 10/25/2017 10:35 PM EDT
[2017-10-26] MEDS ORDERED: Levothyroxine 100 MCG Tablet PO SCH (06:00)
[2017-10-26 08:32] LABS: Baso % (Auto) 0.4 % (0.0-2.0); Eos # (Auto) 0.1 th/mm3 (0.0-0.4); Hematocrit 23.8 % (35.0-46.0); Hemoglobin 8.4 gm/dL (11.6-15.3); Lymph # (Auto) 1.5 th/mm3 (1.0-4.8); Lymph % (Auto) 18.9 % (9.0-44.0); Mean Corpuscular HGB Conc 35.2 % (32.0-36.0); Mean Corpuscular Hemoglobin 30.2 pg (27.0-34.0); Mean Corpuscular Volume 85.7 fL (80.0-100.0); Mean Platelet Volume 8.4 fL (7.0-11.0); Mono # (Auto) 0.7 th/mm3 (0.0-0.9); Neut # (Auto) 5.9 th/mm3 (1.8-7.7); Neut % (Auto) 71.7 % (16.0-70.0); Platelet Count 173 th/mm3 (150-450); Red Blood Count 2.78 mil/mm3 (4.00-5.30); White Blood Count 8.2 th/mm3 (4.0-11.0)
--- NOTE | 2017-10-26 08:46 | P.PNIM ---
Subjective Interval history: Patient says she is feeling all right. Denies any chest pain shortness of breath. Physical Exam Vital signs: Vital Signs 10/25/17 18:34 10/25/17 19:39 10/25/17 22:56 Temperature 97.6 F 98 F Pulse Rate 124 H 83 92 H Respiratory Rate 20 20 18 Blood Pressure 159/58 H 121/56 L Pulse Oximetry 100 100 100 10/25/17 23:12 10/26/17 00:00 10/26/17 01:11 Temperature 98.1 F 97.7 F Pulse Rate 85 82 78 Respiratory Rate 18 20 Blood Pressure 126/61 120/56 L Pulse Oximetry 100 10/26/17 01:15 10/26/17 01:32 10/26/17 03:26 Temperature 97.7 F 97.7 F 97.7 F Pulse Rate 78 92 H 86 Respiratory Rate 20 18 18 Blood Pressure 120/56 L 147/64 H 142/86 H Pulse Oximetry 100 100 98 10/26/17 04:00 Temperature Pulse Rate 82 Respiratory Rate Blood Pressure Pulse Oximetry Intake & Output 10/25/17 10/26/17 10/26/17 18:59 06:59 18:59 Intake Total 1400 / 1400 Balance 1400 / 1400 Weight 81.647 kg 82.9 kg Intake: IV 600 / 600 NS Inj 500 ML @ Wide Open IV. 500 / 500 SIG BOLUS RODGER Rx#:[id number] Rocephin Inj 2,000 MG In NS Inj 100 / 100 100 ML @ 200 mls/hr IV.SIG ONCE ONE Rx#:[id number] Intake (Blood Product) Amt 800 / 800 Rbc As-3 Leukoreduced Unit 400 / 400 [id number] Rbc As-3 Leukoreduced Unit 400 / 400 [id number] Other: Weight On Admission 82.9 kg Narrative: GENERAL: Patient sitting up in bed. Appears comfortable. SKIN: Warm and dry. HEAD: Normocephalic. EYES: No scleral icterus. No injection or drainage. NECK: Supple, trachea midline. No JVD. Right neck incision with Steri-Strips intact. No ecchymosis CARDIOVASCULAR: Regular rate and rhythm without murmurs, gallops, or rubs. RESPIRATORY: Breath sounds equal bilaterally. No accessory muscle use. GASTROINTESTINAL: Abdomen soft, non-tender, nondistended. MUSCULOSKELETAL: No cyanosis, or edema. BACK: Nontender without obvious deformity. No CVA tenderness. Neurologic. Moves all extremities. Results - Labs CBC & Chem 7: 10/25/17 20:15 10/25/17 20:15 Laboratory Results - last 24 hr 10/25/17 10/25/17 10/25/17 20:15 20:15 20:15 WBC RBC Hgb Hct MCV MCH MCHC RDW Plt Count MPV Neut % (Auto) Lymph % (Auto) [place] % (Auto) Eos % (Auto) Baso % (Auto) Neut # (Auto) Lymph # (Auto) [place] # (Auto) Eos # (Auto) Baso # (Auto) WBC Differential Differential Comment PT INR APTT Sodium Potassium Chloride Carbon Dioxide Anion Gap BUN Creatinine Estimated GFR Random Glucose Lactic Acid 1.3 Calcium Total Bilirubin AST ALT Alkaline Phosphatase Troponin I B-Natriuretic Peptide 31 Total Protein Albumin TSH Less than 0.005 L Urine Color Urine Clarity Urine pH Ur Specific [place] Urine Protein Urine Glucose (UA) Urine Ketones Urine Occult Blood Urine Nitrate Urine Bilirubin Urine Urobilinogen Ur Leukocyte Esterase Urine RBC Urine WBC Urine WBC Clumps Ur Squamous Epith Cells Hyaline Casts Urine Mucus Micro UA Comment Ur Microscopic Review Urine Culture Comments Blood Type Antibody Screen MTS Gel Crossmatch 10/25/17 10/25/17 10/25/17 20:15 20:15 20:15 WBC 8.6 RBC 2.46 L Hgb 7.2 L Hct 21.6 L MCV 87.7 MCH 29.1 MCHC 33.2 RDW 13.4 Plt Count 222 MPV 8.4 Neut % (Auto) 76.9 H Lymph % (Auto) 15.1 [place] % (Auto) 6.6 Eos % (Auto) 0.8 Baso % (Auto) 0.6 Neut # (Auto) 6.6 Lymph # (Auto) 1.3 [place] # (Auto) 0.6 Eos # (Auto) 0.1 Baso # (Auto) 0.1 WBC Differential . Differential Comment Auto diff final PT 11.2 INR 1.1 APTT 21.0 L Sodium 144 Potassium 4.2 Chloride 110 H Carbon Dioxide 23.3 Anion Gap 11 BUN 62 H Creatinine 1.09 H Estimated GFR 49 L Random Glucose 127 H Lactic Acid Calcium 8.8 Total Bilirubin 0.3 AST 14 L ALT 17 Alkaline Phosphatase 65 Troponin I 0.02 B-Natriuretic Peptide Total Protein 6.0 L Albumin 2.9 L TSH Urine Color Urine Clarity Urine pH Ur Specific [place] Urine Protein Urine Glucose (UA) Urine Ketones Urine Occult Blood Urine Nitrate Urine Bilirubin Urine Urobilinogen Ur Leukocyte Esterase Urine RBC Urine WBC Urine WBC Clumps Ur Squamous Epith Cells Hyaline Casts Urine Mucus Micro UA Comment Ur Microscopic Review Urine Culture Comments Blood Type Antibody Screen MTS Gel Crossmatch 10/25/17 10/25/17 10/25/17 20:40 20:45 21:12 WBC RBC Hgb Hct MCV MCH MCHC RDW Plt Count MPV Neut % (Auto) Lymph % (Auto) [place] % (Auto) Eos % (Auto) Baso % (Auto) Neut # (Auto) Lymph # (Auto) [place] # (Auto) Eos # (Auto) Baso # (Auto) WBC Differential Differential Comment PT INR APTT Sodium Potassium Chloride Carbon Dioxide Anion Gap BUN Creatinine Estimated GFR Random Glucose Lactic Acid Calcium Total Bilirubin AST ALT Alkaline Phosphatase Troponin I B-Natriuretic Peptide Total Protein Albumin TSH Urine Color Yellow Urine Clarity Hazy H Urine pH 5.0 Ur Specific [place] 1.016 Urine Protein Negative Urine Glucose (UA) Negative Urine Ketones Negative Urine Occult Blood Small H Urine Nitrate Negative Urine Bilirubin Negative Urine Urobilinogen Less than 2 Ur Leukocyte Esterase Large H Urine RBC 2 Urine WBC 168 H Urine WBC Clumps Occasional H Ur Squamous Epith Cells 2 Hyaline Casts 3 Urine Mucus Few H Micro UA Comment Culture indicated Ur Microscopic Review Not Reportable Urine Culture Comments Culture indicated Blood Type O Positive Antibody Screen Negative MTS Gel Crossmatch See Detail - Imaging Impressions Chest X-Ray 10/25/17 19:34 CONCLUSION: No acute cardiopulmonary disease. Head CT 10/25/17 19:34 CONCLUSION: 1. Negative noncontrast head CT. . Head CTA 10/25/17 19:34 CONCLUSION: 1. Unremarkable examination. Neck CTA 10/25/17 19:34 CONCLUSION: 1. Postsurgical changes consistent with recent right carotid endarterectomy. There is mild irregularity with no significant narrowing. 2. Left carotid calcification with approximately 50% stenosis in the proximal internal carotid artery. Assessment and Plan - Assessment (1) GI bleed Code(s): K92.2 - Gastrointestinal hemorrhage, unspecified Status: Acute (2) Symptomatic anemia Code(s): D64.9 - Anemia, unspecified Status: Acute (3) UTI (urinary tract infection) Code(s): N39.0 - Urinary tract infection, site not specified Status: Acute (4) S/P carotid endarterectomy Code(s): Z98.890 - Other specified postprocedural states Status: Acute (5) ALLEN (acute kidney injury) Code(s): N17.9 - Acute kidney failure, unspecified Status: Acute - Plan //GI Bleed: on Plavix for recent Right CEA, now w/ melena, Hemoccult +. Consult GI for further evaluation/intervention, hold Plavix for now, repeat Hgb/ Hct after transfusion. Hemodynamically stable at this time. //Symptomatic Anemia: secondary to above, Hgb 7.2, previously 9.4 on 10/16/17, + dizziness/lightheadedness. Transfuse as above, repeat Hgb/Hct after transfusion. = 99. A.m. hemoglobin pending. Follow-up GI recommendations. //UTI: U/a w/ UTI, s/p Rocephin, will continue IV Abx, follow up cultures, monitor I/O. //ALLEN: Creatinine 1.09, previously 0.77 on 10/16/17, IVF for hydration, repeat labs in am, monitor I/O. //Hypothyroidism. Chronic. TSH undetectable. Will hold off on levothyroxine while inpatient. Will discharge on lower dose. //S/p Right CEA: Recent admit 10/13-10/16/17 for dizziness/visual changes, + right carotid stenosis, s/p Right CEA by Dr. Cavanaugh on 10/15/17, steri-strips intact, wound healing, will consult Dr. Cavanaugh as needed for further eval/recommendations on anticoagulation in light of acute GI Bleed. -We will continue to hold Plavix for now. //DVT Prophylaxis: Pharmacologic contraindication due to GI Bleed /Social work for d/c planning as needed Discharge Planning: We will need GI clearance.
[2017-10-26 08:58] LABS: Alanine Aminotransferase 13 U/L (10-53); Albumin 2.5 g/dL (3.4-5.0); Anion Gap 9 meq/L (5-15); Aspartate Aminotransferase 16 U/L (15-37); Blood Urea Nitrogen 63 mg/dL (7-18); Calcium 8.6 mg/dL (8.5-10.1); Carbon Dioxide 26.1 meq/L (21.0-32.0); Chloride 112 meq/L (98-107); Glomerular Filtration Rate 50 mL/min (>89); Glucose,Random 87 mg/dL (74-106); Potassium 3.8 meq/L (3.5-5.1); Sodium 147 meq/L (136-145)
[2017-10-26 09:01] LABS: Alkaline Phosphatase 55 U/L (45-117); Total Protein 5.3 g/dL (6.4-8.2)
[2017-10-26] MEDS: Senna/Docusate Sodium 8.6/50 MG Tablet PO SCH ×2 (09:50→20:24)
--- NOTE | 2017-10-26 13:15 | ECG ---
Date Performed: 10/25/2017 Time Performed: 19:41:30 PTAGE: 77 years EKG: Sinus rhythm NORMAL ECG PREVIOUS TRACING : 10/14/2017 12.17 Since the previous tracing, no significant change noted DOCTOR: Jacob Bansal Interpretating Date/Time 10/26/2017 13:12:52
--- NOTE | 2017-10-26 17:33 | MB ---
cc: Samy Wasserman MD DATE: 10/26/2017 TYPE OF CONSULTATION: Gastrointestinal. REASON FOR CONSULTATION: Gastrointestinal bleeding. HISTORY OF PRESENT ILLNESS: This is a 77-year-old female patient with a past medical history of hypertension, lymphedema, coronary artery disease, dyslipidemia, and had 2 surgeries for a carotid artery. The most recent one was 2 weeks ago. The patient was placed on Plavix after the surgery. Subsequently, she started to feel some dizziness and weakness and had multiple episodes of melanotic stool at least 2-3 times daily. The patient denies any abdominal pain. Denies any hematemesis, nausea, dysphagia, or any other associated symptoms. The patient had a previous colonoscopy 2 years ago that was clear, as per the patient. The patient presented to the emergency room, she was found to have a hemoglobin of 7.2 with hematocrit of 2.1 Plavix was stopped immediately and she was admitted for blood transfusions and further evaluation. At the current time, the patient is comfortable, not in distress or in pain. Tolerating diet without any discomfort. REVIEW OF SYSTEMS: All 12-point review of systems negative other than ones mentioned in the history of present illness. PAST MEDICAL HISTORY: Breast hematoma, chronic earache, herniated disk, lymphedema, arthritis, dyslipidemia, hypertension, coronary artery disease. PAST SURGICAL HISTORY: Back surgeries, right knee surgery and right carotid endarterectomy. FAMILY HISTORY: Positive for cirrhosis. PSYCHOSOCIAL HISTORY: The patient denies alcohol use. No history of tobacco or drug abuse. MEDICATIONS: 1. Acetaminophen 2. Atorvastatin. 3. Dulcolax 4. Ceftriaxone. 5. Lactulose. 6. Zofran. ALLERGIES: NO KNOWN DRUG ALLERGIES. PHYSICAL EXAMINATION: GENERAL: The patient found to be comfortable at this time, not in distress or in pain, appeared to have pallor, but no jaundice. HEAD AND NECK: Normocephalic, atraumatic head. Scar of the right endarterectomy was seen and appeared to be healing well. No carotid bruits at the current time. HEART: Regular rate and rhythm. No murmurs. ABDOMEN: Soft, nontender. No hepatosplenomegaly. No palpable masses. EXTREMITIES: Normal pulses. No edema. NEUROLOGIC: Cranial nerves 2-12 grossly intact. No motor or sensory deficits. SKIN: No rashes. Intact. LABORATORY DATA: As in history of present illness. ASSESSMENT AND PLAN: This is a 77-year-old female patient with a past medical history of hypertension, dyslipidemia, lymphedema, coronary artery disease, who presents with the following problems: 1. Melena of 1 week duration. 2. Significant drop in her hemoglobin from her baseline. 3. Recent Plavix use for peripheral vascular disease. 4. Status post right carotid endarterectomy. 5. Status post colonoscopy 2 years ago that was clear. RECOMMENDATION: Agree with the plan as by primary team. Continue hydration. Follow hemoglobin and hematocrit. Proton pump inhibitor. Blood transfusion as needed. We will keep her n.p.o. after midnight and obtain consent for esophagogastroduodenoscopy. The procedure was explained to the patient including the risks, benefits, and possible complication. The patient agreed to proceed with that in the morning. Further recommendations to follow. Thank you for the consult. MD NIKOLAI Pratt/eleni , 02:39 PM , 02:49 PM
[2017-10-27] MEDS ORDERED: Chlorhexidine Gluconate 2% 1 Pack (2 Cloths) TOPICAL ONE (05:39)
[2017-10-27] MEDS ORDERED: Sodium Chlor 0.9% Inj 500 ML IV.SIG SCH (06:00)
[2017-10-27 07:51] LABS: Baso # (Auto) 0.1 th/mm3 (0.0-0.2); Baso % (Auto) 1.1 % (0.0-2.0); Eos # (Auto) 0.1 th/mm3 (0.0-0.4); Eos % (Auto) 2.1 % (0.0-4.0); Hematocrit 22.1 % (35.0-46.0); Hemoglobin 7.5 gm/dL (11.6-15.3); Lymph # (Auto) 1.1 th/mm3 (1.0-4.8); Lymph % (Auto) 18.2 % (9.0-44.0); Mean Corpuscular Hemoglobin 29.9 pg (27.0-34.0); Mean Corpuscular Volume 88.1 fL (80.0-100.0); Mean Platelet Volume 7.7 fL (7.0-11.0); Mono # (Auto) 0.4 th/mm3 (0.0-0.9); Mono % (Auto) 6.6 % (0.0-8.0); Neut # (Auto) 4.3 th/mm3 (1.8-7.7); Platelet Count 173 th/mm3 (150-450); Red Blood Count 2.52 mil/mm3 (4.00-5.30); Red Cell Distribution Width 13.6 % (11.6-17.2)
[2017-10-27 08:12] LABS: Albumin 2.5 g/dL (3.4-5.0); Calcium 8.6 mg/dL (8.5-10.1); Carbon Dioxide 26.2 meq/L (21.0-32.0); Magnesium 1.7 mg/dL (1.5-2.5); Phosphorus 3.9 mg/dL (2.5-4.9); Potassium 3.9 meq/L (3.5-5.1)
--- NOTE | 2017-10-27 09:53 | GIPROC ---
[facility] [address] [facility]. [facility] [place], [address] EGD PROCEDURE REPORT EXAM DATE: 10/27/2017 PATIENT NAME: Trinh Lockwood MR #: [id number] BIRTHDATE: 1940 ATTENDING: Samy Wasserman MD ORDER #: [id number] HR INTERN: Darline Lopes RN STATUS: inpatient INDICATIONS: The patient is a 77 yr old female here for an EGD due to hematochezia PROCEDURE PERFORMED: EGD w/ biopsy EGD w/ control of bleeding MEDICATIONS: Per Anesthesia and None. TOPICAL ANESTHETIC: none CONSENT: The patient understands the risks and benefits of the procedure and understands that these risks include, but are not limited to: sedation, allergic reaction, infection, perforation and/or bleeding. Alternative means of evaluation and treatment include, among others: physical exam, x-rays, and/or surgical intervention. The patient elects to proceed with this endoscopic procedure. medical equipment was checked for proper function. Hand hygiene and appropriate measures for infection prevention was taken. After the risks, benefits and alternatives of the procedure were thoroughly explained, Informed consent was verified, confirmed and timeout was successfully executed by the treatment team. The patient was anesthetized with topical anesthesia and the Pentax [id number] endoscope was introduced through the mouth and advanced to the second portion of the duodenum. Retroflexion was performed and was normal The gastroscope was then slowly withdrawn and removed. ESOPHAGUS: The mucosa of the esophagus appeared normal. STOMACH: There was mild gastritis in the gastric antrum. Multiple biopsies were performed using cold forceps. Sample sent for histology. DUODENUM: A small bleeding, round and deep ulcer with surrounding edema, an adherent clot and active oozing of blood was found in the 1st part of the duodenum. Submucosal injection of 4ml of epinephrine 1:10,000 was performed around the bleeding site with complete hemostasis achieved. ADVERSE EVENTS: There were no complications. IMPRESSIONS: 1. The esophagus appeared normal 2. There was mild gastritis in the gastric antrum; multiple biopsies were performed 3. Small ulcer was found in the 1st part of the duodenum; Submucosal injection of 4ml of epinephrine 1:10,000 was performed around the bleeding site 4. Retroflexion was performed and was normal RECOMMENDATIONS: 1. Await biopsy results. Biopsy results will not be ready for 7-10 days. If you don't hear from us in two weeks, call our office for biopsy results. 2. Continue PPI 3. Avoid NSAIDS PATIENT CONDITION: stable DISPOSITION: Observation REPEAT EXAM: NONE Samy Wasserman MD eSigned: Samy Wasserman MD 10/27/2017 9:52 AM cc: PATIENT NAME: Trinh Lockwood MR#: [id number]
[2017-10-27] MEDS ORDERED: Potassium Chloride Inj 10 MEQ in Sodium Chloride 0.45 % Inj 1,000 ML IV.CONT SCH (11:00)
[2017-10-27] MEDS: Senna/Docusate Sodium 8.6/50 MG Tablet PO SCH ×2 (11:15→21:35)
[2017-10-27] MEDS ORDERED: Sodium Chlor 0.9% Inj 250 ML IV.SIG SCH (13:00)
[2017-10-27] MEDS ORDERED: Dextrose 5% in Water Inj 1,000 ML IV.CONT SCH (13:00)
--- NOTE | 2017-10-27 13:03 | P.PNIM ---
Subjective Interval history: Patient says she is feeling generally fatigued, says she would like to go home tomorrow. Denies any chest pain or shortness of breath. Physical Exam Vital signs: Vital Signs 10/26/17 16:00 10/26/17 20:00 10/27/17 00:00 Temperature 98.0 F 98.0 F Pulse Rate 88 90 86 Respiratory Rate 20 16 Blood Pressure 119/58 L 142/55 H Pulse Oximetry 100 98 10/27/17 04:00 10/27/17 08:00 10/27/17 10:00 Temperature 98.3 F 97.7 F 98.1 F Pulse Rate 85 85 82 Respiratory Rate 16 16 14 Blood Pressure 144/85 H 136/67 139/63 Pulse Oximetry 96 99 97 10/27/17 12:00 Temperature 97.8 F Pulse Rate 83 Respiratory Rate 16 Blood Pressure 152/67 H Pulse Oximetry 98 Intake & Output 10/26/17 10/27/17 10/27/17 18:59 06:59 18:59 Intake Total 600 / 600 460 / 460 100 / 100 Balance 600 / 600 460 / 460 100 / 100 Weight 82.5 kg Intake: IV 0 / 0 100 / 100 NS Inj 250 ML @ 15 mls/hr IV. 0 / 0 SIG ONCE RODGER Rx#:[id number] Rocephin Inj 1,000 MG In NS Inj 100 / 100 100 ML @ 200 mls/hr IV.SIG Q24H RODGER Rx#:[id number] Oral 600 / 600 360 / 360 Anesthesia Amount 100 / 100 Other 0 / 0 Other: # Voids 3 4 Date of Last Bowel Movement 10/25/17 # Bowel Movements 0 Narrative: GENERAL: Patient sitting up in bed. Appears comfortable. SKIN: Warm and dry. HEAD: Normocephalic. EYES: No scleral icterus. No injection or drainage. NECK: Supple, trachea midline. No JVD. Right neck incision with Steri-Strips intact. No ecchymosis CARDIOVASCULAR: Regular rate and rhythm without murmurs, gallops, or rubs. RESPIRATORY: Breath sounds equal bilaterally. No accessory muscle use. GASTROINTESTINAL: Abdomen soft, non-tender, nondistended. MUSCULOSKELETAL: No cyanosis. Chronic significant lymphedema as before. BACK: Nontender without obvious deformity. No CVA tenderness. Neurologic. Moves all extremities. Results - Labs CBC & Chem 7: 10/27/17 07:40 10/27/17 07:40 Laboratory Results - last 24 hr 10/26/17 10/27/17 10/27/17 14:24 07:40 07:40 WBC 6.0 RBC 2.52 L Hgb 8.1 L 7.5 L Hct 22.1 L MCV 88.1 MCH 29.9 MCHC 34.0 RDW 13.6 Plt Count 173 MPV 7.7 Neut % (Auto) 72.0 H Lymph % (Auto) 18.2 [place] % (Auto) 6.6 Eos % (Auto) 2.1 Baso % (Auto) 1.1 Neut # (Auto) 4.3 Lymph # (Auto) 1.1 [place] # (Auto) 0.4 Eos # (Auto) 0.1 Baso # (Auto) 0.1 WBC Differential . Differential Comment Auto diff final Sodium 146 H Potassium 3.9 Chloride 112 H Carbon Dioxide 26.2 Anion Gap 8 BUN 38 H Creatinine 0.90 Estimated GFR 61 L Random Glucose 94 Calcium 8.6 Phosphorus 3.9 Magnesium 1.7 Albumin 2.5 L Microbiology 10/25/17 20:40 Clean Catch Urine Urine Culture - Final 10-50,000 cfu/mL mixed scottie (probable contaminants) 10/25/17 20:00 Blood - Peripheral Aerobic Blood Culture - Preliminary No growth in 2 days 10/25/17 20:00 Blood - Peripheral Anaerobic Blood Culture - Preliminary No growth in 2 days 10/25/17 20:15 Blood - Peripheral Aerobic Blood Culture - Preliminary No growth in 2 days 10/25/17 20:15 Blood - Peripheral Anaerobic Blood Culture - Preliminary No growth in 2 days Assessment and Plan - Assessment (1) GI bleed Code(s): K92.2 - Gastrointestinal hemorrhage, unspecified Status: Acute (2) Symptomatic anemia Code(s): D64.9 - Anemia, unspecified Status: Acute (3) UTI (urinary tract infection) Code(s): N39.0 - Urinary tract infection, site not specified Status: Acute (4) S/P carotid endarterectomy Code(s): Z98.890 - Other specified postprocedural states Status: Acute (5) ALLEN (acute kidney injury) Code(s): N17.9 - Acute kidney failure, unspecified Status: Acute - Plan //GI Bleed: //Peptic ulcer On Plavix for recent Right CEA, now w/ melena, Hemoccult +. Consult GI for further evaluation/intervention, hold Plavix for now, repeat Hgb/Hct after transfusion. Hemodynamically stable at this time. = 10/27. Status post EGD with epinephrine injection of ulcer. Continue PPI. //Symptomatic Anemia: secondary to above, Hgb 7.2, previously 9.4 on 10/16/17, + dizziness/lightheadedness. Transfuse as above, repeat Hgb/Hct after transfusion. = 10/26. A.m. hemoglobin pending. Follow-up GI recommendations. = 10/27. Ulcer as above. Recheck hemoglobin tomorrow. As patient is still somewhat weak, hemoglobin 7.4, will transfuse 1 unit of PRBCs. //UTI: U/a w/ UTI, s/p Rocephin, will continue IV Abx, follow up cultures, = Mixed scottie. Discontinue ceftriaxone //ALLEN: Creatinine 1.09, previously 0.77 on 10/16/17, IVF for hydration, repeat labs in am, monitor I/O. //Hypothyroidism. Chronic. TSH undetectable. Will hold off on levothyroxine while inpatient. Will discharge on lower dose. //S/p Right CEA: Recent admit 10/13-10/16/17 for dizziness/visual changes, + right carotid stenosis, s/p Right CEA by Dr. Cavanaugh on 10/15/17, steri-strips intact, wound healing, will consult Dr. Cavanaugh as needed for further eval/recommendations on anticoagulation in light of acute GI Bleed. -We will continue to hold Plavix for now. Recommend restart as soon as possible directed by primary care or other franchise consultant as outpatient. //DVT Prophylaxis: Pharmacologic contraindication due to GI Bleed //Hypernatremia. Sodium 146. Start D5 at 30 mL an hour. /Social work for d/c planning as needed Discharge Planning: We will need GI clearance. Discharge home tomorrow if hemoglobin stable.
[2017-10-28] MEDS ORDERED: Pantoprazole Inj 40 MG Vial IV.PUSH ONE (09:00)
[2017-10-28] MEDS ORDERED: Lisinopril 20 MG Tablet PO SCH (09:00)
[2017-10-28] MEDS ORDERED: hydroCHLOROthiazide 25 MG Tablet PO SCH (09:00)
[2017-10-28] MEDS: Senna/Docusate Sodium 8.6/50 MG Tablet PO SCH (09:41)
[2017-10-28 09:53] LABS: Baso % (Auto) 0.6 % (0.0-2.0); Eos # (Auto) 0.2 th/mm3 (0.0-0.4); Eos % (Auto) 3.1 % (0.0-4.0); Hematocrit 25.8 % (35.0-46.0); Hemoglobin 8.8 gm/dL (11.6-15.3); Lymph # (Auto) 0.9 th/mm3 (1.0-4.8); Lymph % (Auto) 14.8 % (9.0-44.0); Mean Corpuscular HGB Conc 34.2 % (32.0-36.0); Mean Corpuscular Hemoglobin 29.9 pg (27.0-34.0); Mean Corpuscular Volume 87.4 fL (80.0-100.0); Mean Platelet Volume 7.7 fL (7.0-11.0); Mono # (Auto) 0.5 th/mm3 (0.0-0.9); Mono % (Auto) 8.3 % (0.0-8.0); Neut # (Auto) 4.3 th/mm3 (1.8-7.7); Neut % (Auto) 73.2 % (16.0-70.0); Platelet Count 194 th/mm3 (150-450); Red Blood Count 2.95 mil/mm3 (4.00-5.30); Red Cell Distribution Width 13.6 % (11.6-17.2); White Blood Count 5.8 th/mm3 (4.0-11.0)
--- NOTE | 2017-10-28 10:04 | P.DCO ---
- Physical Therapy Order: Evaluate and treat - Home Health Nursing Order: Nursing assessment with vital signs - Certification I have seen patient Trinh Lockwood on 10/28/17. My clinical findings support the need for the requested home health care services because: Deconditioned with increased weakness I certify that my clinical findings support that this patient is homebound because: Need for psychosocial assistance
--- NOTE | 2017-10-28 10:12 | P.PNIM ---
Subjective Interval history: feeling well. Denies any chest pain shortness of breath. Denies nausea vomiting. Says she feels like going home. Feels stronger today. Physical Exam Vital signs: Vital Signs 10/27/17 12:00 10/27/17 15:33 10/27/17 16:00 Temperature 97.8 F 97.9 F Pulse Rate 83 70 102 H Respiratory Rate 16 16 Blood Pressure 152/67 H 157/64 H Pulse Oximetry 98 99 10/27/17 16:20 10/27/17 16:45 10/27/17 19:57 Temperature 97.9 F 98.4 F Pulse Rate 70 67 73 Respiratory Rate 16 17 Blood Pressure 157/64 H 147/74 H Pulse Oximetry 99 10/27/17 20:00 10/27/17 23:46 10/28/17 00:00 Temperature 97.4 F L 97.8 F Pulse Rate 95 H 98 H 87 Respiratory Rate 17 18 Blood Pressure 163/67 H 124/59 L Pulse Oximetry 98 96 10/28/17 04:00 10/28/17 04:23 10/28/17 08:00 Temperature 97.8 F 97.3 F L Pulse Rate 83 77 80 Respiratory Rate 18 18 Blood Pressure 135/60 142/70 H Pulse Oximetry 96 96 Intake & Output 10/27/17 10/28/17 10/28/17 18:59 06:59 18:59 Intake Total 225 / 225 440 / 440 343 / 343 Output Total 1300 / 1300 Balance 225 / 225 -860 / -860 343 / 343 Weight 87.2 kg Intake: IV 125 / 125 343 / 343 D5W Inj 1,000 ML @ 30 mls/hr IV 343 / 343 .CONT .Q24H RODGER Rx#:[id number] KCl Inj 10 MEQ In 1/2 Normal 125 / 125 Saline Inj 1,000 ML @ 100 mls/ hr IV.CONT .Q10H3M RODGER Rx#: [id number] Oral 440 / 440 Anesthesia Amount 100 / 100 Intake (Blood Product) Amt 0 / 0 Rbc As-3 Leukoreduced Unit 0 / 0 [id number] Output: Urine 1300 / 1300 Other: Date of Last Bowel Movement 10/25/17 10/25/17 Narrative: GENERAL: Patient sitting up in bed. Appears comfortable. Smiling today. SKIN: Warm and dry. HEAD: Normocephalic. EYES: No scleral icterus. No injection or drainage. NECK: Supple, trachea midline. No JVD. Right neck incision with Steri-Strips intact. No ecchymosis CARDIOVASCULAR: Regular rate and rhythm without murmurs, gallops, or rubs. RESPIRATORY: Breath sounds equal bilaterally. No accessory muscle use. GASTROINTESTINAL: Abdomen soft, non-tender, nondistended. MUSCULOSKELETAL: No cyanosis. Chronic significant lymphedema as before. BACK: Nontender without obvious deformity. No CVA tenderness. Neurologic. Moves all extremities. Results - Labs CBC & Chem 7: 10/28/17 08:57 10/27/17 07:40 Laboratory Results - last 24 hr 10/27/17 10/28/17 12:53 08:57 WBC 5.8 RBC 2.95 L Hgb 8.8 L Hct 25.8 L MCV 87.4 MCH 29.9 MCHC 34.2 RDW 13.6 Plt Count 194 MPV 7.7 Neut % (Auto) 73.2 H Lymph % (Auto) 14.8 [place] % (Auto) 8.3 H Eos % (Auto) 3.1 Baso % (Auto) 0.6 Neut # (Auto) 4.3 Lymph # (Auto) 0.9 L [place] # (Auto) 0.5 Eos # (Auto) 0.2 Baso # (Auto) 0.0 WBC Differential . Differential Comment Auto diff final MTS Gel Crossmatch See Detail Microbiology 10/25/17 20:40 Clean Catch Urine Urine Culture - Final 10-50,000 cfu/mL mixed scottie (probable contaminants) 10/25/17 20:00 Blood - Peripheral Aerobic Blood Culture - Preliminary No growth in 2 days 10/25/17 20:00 Blood - Peripheral Anaerobic Blood Culture - Preliminary No growth in 2 days 10/25/17 20:15 Blood - Peripheral Aerobic Blood Culture - Preliminary No growth in 2 days 10/25/17 20:15 Blood - Peripheral Anaerobic Blood Culture - Preliminary No growth in 2 days Assessment and Plan - Assessment (1) Carotid stenosis Code(s): I65.29 - Occlusion and stenosis of unspecified carotid artery Status : Acute (2) Symptomatic anemia Code(s): D64.9 - Anemia, unspecified Status: Acute (3) GI bleed Code(s): K92.2 - Gastrointestinal hemorrhage, unspecified Status: Acute (4) Symptomatic anemia Code(s): D64.9 - Anemia, unspecified Status: Acute (5) UTI (urinary tract infection) Code(s): N39.0 - Urinary tract infection, site not specified Status: Acute (6) S/P carotid endarterectomy Code(s): Z98.890 - Other specified postprocedural states Status: Acute (7) ALLEN (acute kidney injury) Code(s): N17.9 - Acute kidney failure, unspecified Status: Acute - Plan //GI Bleed: //Peptic ulcer On Plavix for recent Right CEA, now w/ melena, Hemoccult +. Consult GI for further evaluation/intervention, hold Plavix for now, repeat Hgb/Hct after transfusion. Hemodynamically stable at this time. = 10/27. Status post EGD with epinephrine injection of ulcer. Continue PPI. = 10/28. Discussed with GI. Okay to restart Plavix. Will restart Plavix tomorrow. Prescription written for Protonix. //Symptomatic Anemia: secondary to above, Hgb 7.2, previously 9.4 on 10/16/17, + dizziness/lightheadedness. Transfuse as above, repeat Hgb/Hct after transfusion. = 10/26. A.m. hemoglobin pending. Follow-up GI recommendations. = 10/27. Ulcer as above. Recheck hemoglobin tomorrow. As patient is still somewhat weak, hemoglobin 7.4, will transfuse 1 unit of PRBCs. //UTI: U/a w/ UTI, s/p Rocephin, will continue IV Abx, follow up cultures, = Mixed scottie. Discontinue ceftriaxone //ALLEN: Creatinine 1.09, previously 0.77 on 10/16/17, IVF for hydration, repeat labs in am, monitor I/O. = Resolved. //Hypothyroidism. Chronic. TSH undetectable. Will hold off on levothyroxine while inpatient. Will discharge on lower dose. //S/p Right CEA: Recent admit 10/13-10/16/17 for dizziness/visual changes, + right carotid stenosis, s/p Right CEA by Dr. Cavanaugh on 10/15/17, steri-strips intact, wound healing, will consult Dr. Cavanaugh as needed for further eval/recommendations on anticoagulation in light of acute GI Bleed. -We will continue to hold Plavix for now. Recommend restart as soon as possible directed by primary care or other rewards consultant as outpatient. = Discussed with gastroneurology. Will restart Plavix tomorrow. //DVT Prophylaxis: Pharmacologic contraindication due to GI Bleed //Hypernatremia. Sodium 146. Start D5 at 30 mL an hour. /Social work for d/c planning as needed Discharge Planning: Discharge home today after labs return.
--- NOTE | 2017-10-28 10:15 | P.DS ---
Date of admission: 10/25/17 22:01 Primary care physician: UNKNOWN Brief History from admission: This is a 77-year-old female with a PMH of HTN, Hyperlipidemia, Lymphedema, CAD and Right CEA who presented to the ER w/ complaints of dizziness, weakness and melena. Recent admit 10/13- for dizziness and visual changes, found to have severe right carotid occlusion, s/p Right CEA by Dr. Cavanaugh on 10/15/17 and d/c' d on Plavix 75mg qd. States she took Plavix "for a few days", however started to have weakness/dizziness in addition to melena and stopped taking Plavix approx 4-5 days ago. Denies fever, chills, chest pain, nausea, vomiting or diarrhea. No h/o GI Bleed in the past. On arrival, BP 126/51, HR 98, O2 sat 97 % on RA, Afebrile. Hemoglobin 7.2, previously 9.4 on 10/16/2017. INR 1.1. Creatinine 1.09, previously 0.77 on 10/16/2017. UA positive for UTI. Hemoccult +. S/p Rocephin in the ER, 2u pRBC pending transfusion. DS: Diagnosis - Discharge Diagnosis (1) Carotid stenosis Status: Acute (2) Symptomatic anemia Status: Acute (3) GI bleed Status: Acute (4) Symptomatic anemia Status: Acute (5) UTI (urinary tract infection) Status: Acute (6) S/P carotid endarterectomy Status: Acute (7) ALLEN (acute kidney injury) Status: Acute DS: Medications - Discharge Medications Prescriptions: clopidogrel [Plavix] 75 mg PO DAILY 30 Days #30 tab levothyroxine 50 mcg PO DAILY 30 Days #30 tab pantoprazole 40 mg PO BID 30 Days #60 tab DS: Summary Hospital Course: Patient presented with symptomatic anemia, hemoglobin 7.2. Patient was transfused with improvement in hemoglobin. Plavix was held. GI was consulted, patient underwent EGD which found bleeding ulcer which was injected with epinephrine with resolution of bleeding. Patient will be started on tonics twice daily. Patient will be restarted on Plavix. Follow-up with GI, vascular surgery as outpatient. For problem based summary from most recent progress note, please see below. //GI Bleed: //Peptic ulcer On Plavix for recent Right CEA, now w/ melena, Hemoccult +. Consult GI for further evaluation/intervention, hold Plavix for now, repeat Hgb/Hct after transfusion. Hemodynamically stable at this time. = 10/27. Status post EGD with epinephrine injection of ulcer. Continue PPI. = 10/28. Discussed with GI. Okay to restart Plavix. Will restart Plavix tomorrow. Prescription written for Protonix. //Symptomatic Anemia: secondary to above, Hgb 7.2, previously 9.4 on 10/16/17, + dizziness/lightheadedness. Transfuse as above, repeat Hgb/Hct after transfusion. = 10/26. A.m. hemoglobin pending. Follow-up GI recommendations. = 10/27. Ulcer as above. Recheck hemoglobin tomorrow. As patient is still somewhat weak, hemoglobin 7.4, will transfuse 1 unit of PRBCs. //UTI: U/a w/ UTI, s/p Rocephin, will continue IV Abx, follow up cultures, = Mixed scottie. Discontinue ceftriaxone //ALLEN: Creatinine 1.09, previously 0.77 on 10/16/17, IVF for hydration, repeat labs in am, monitor I/O. = Resolved. //Hypothyroidism. Chronic. TSH undetectable. Will hold off on levothyroxine while inpatient. Will discharge on lower dose. //S/p Right CEA: Recent admit 10/13-10/16/17 for dizziness/visual changes, + right carotid stenosis, s/p Right CEA by Dr. Cavanaugh on 10/15/17, steri-strips intact, wound healing, will consult Dr. Cavanaugh as needed for further eval/recommendations on anticoagulation in light of acute GI Bleed. -We will continue to hold Plavix for now. Recommend restart as soon as possible directed by primary care or other leasing consultant as outpatient. = Discussed with gastroneurology. Will restart Plavix tomorrow. //DVT Prophylaxis: Pharmacologic contraindication due to GI Bleed //Hypernatremia. Sodium 146. Start D5 at 30 mL an hour. /Social work for d/c planning as needed Discharge Planning: Discharge home today after labs return. - Time Spent with Patient Total time spent providing and/or coordinating discharge services: Greater than 30 minutes - Quality: VTE Deep Vein Thrombosis/Pulmonary Embolism Present on Admission: No Exam Vital signs: Vital Signs 10/27/17 12:00 10/27/17 15:33 10/27/17 16:00 Temperature 97.8 F 97.9 F Pulse Rate 83 70 102 H Respiratory Rate 16 16 Blood Pressure 152/67 H 157/64 H Pulse Oximetry 98 99 10/27/17 16:20 10/27/17 16:45 10/27/17 19:57 Temperature 97.9 F 98.4 F Pulse Rate 70 67 73 Respiratory Rate 16 17 Blood Pressure 157/64 H 147/74 H Pulse Oximetry 99 10/27/17 20:00 10/27/17 23:46 10/28/17 00:00 Temperature 97.4 F L 97.8 F Pulse Rate 95 H 98 H 87 Respiratory Rate 17 18 Blood Pressure 163/67 H 124/59 L Pulse Oximetry 98 96 10/28/17 04:00 10/28/17 04:23 10/28/17 08:00 Temperature 97.8 F 97.3 F L Pulse Rate 83 77 80 Respiratory Rate 18 18 Blood Pressure 135/60 142/70 H Pulse Oximetry 96 96 Intake & Output 10/27/17 10/28/17 10/28/17 18:59 06:59 18:59 Intake Total 225 / 225 440 / 440 343 / 343 Output Total 1300 / 1300 Balance 225 / 225 -860 / -860 343 / 343 Weight 87.2 kg Intake: IV 125 / 125 343 / 343 D5W Inj 1,000 ML @ 30 mls/hr IV 343 / 343 .CONT .Q24H RODGER Rx#:[id number] KCl Inj 10 MEQ In 1/2 Normal 125 / 125 Saline Inj 1,000 ML @ 100 mls/ hr IV.CONT .Q10H3M RODGER Rx#: [id number] Oral 440 / 440 Anesthesia Amount 100 / 100 Intake (Blood Product) Amt 0 / 0 Rbc As-3 Leukoreduced Unit 0 / 0 [id number] Output: Urine 1300 / 1300 Other: Date of Last Bowel Movement 10/25/17 10/25/17 Results Procedures completed during hospitalization: EGD. Please see report. Pending studies at discharge: Pending at discharge 10/27/17 09:02 Surgical [PTH] Routine Labs on day of discharge: Labs from last 24 hours 10/28/17 10/28/17 10/27/17 08:57 08:57 12:53 WBC 5.8 RBC 2.95 L Hgb 8.8 L Hct 25.8 L MCV 87.4 MCH 29.9 MCHC 34.2 RDW 13.6 Plt Count 194 MPV 7.7 Neut % (Auto) 73.2 H Lymph % (Auto) 14.8 [place] % (Auto) 8.3 H Eos % (Auto) 3.1 Baso % (Auto) 0.6 Neut # (Auto) 4.3 Lymph # (Auto) 0.9 L [place] # (Auto) 0.5 Eos # (Auto) 0.2 Baso # (Auto) 0.0 WBC Differential . Differential Comment Auto diff final Sodium Pending Potassium Pending Chloride Pending Carbon Dioxide Pending Anion Gap Pending BUN Pending Creatinine Pending Random Glucose Pending Calcium Pending Phosphorus Pending Magnesium Pending Albumin Pending MTS Gel Crossmatch See Detail Preliminary micro results at discharge 10/25/17 20:00 Aerobic Blood Culture - Preliminary Blood - Peripheral No growth in 2 days Anaerobic Blood Culture - Preliminary No growth in 2 days 10/25/17 20:15 Aerobic Blood Culture - Preliminary Blood - Peripheral No growth in 2 days Anaerobic Blood Culture - Preliminary No growth in 2 days - Impressions ITS Impressions Chest X-Ray 10/25/17 19:34 CONCLUSION: No acute cardiopulmonary disease. Head CT 10/25/17 19:34 CONCLUSION: 1. Negative noncontrast head CT. . Head CTA 10/25/17 19:34 CONCLUSION: 1. Unremarkable examination. Neck CTA 10/25/17 19:34 CONCLUSION: 1. Postsurgical changes consistent with recent right carotid endarterectomy. There is mild irregularity with no significant narrowing. 2. Left carotid calcification with approximately 50% stenosis in the proximal internal carotid artery. Discharge Plan - Discharge Disposition Patient Disposition: /Home Health Service - Discharge Condition Condition: Stable - Discharge Order Discharge Orders: Discharge Order (Routine); Ordered 10/28/17 Ordered By: Chavez Michael - Discharge Details Anticipated Discharge Date: 10/28/17 Discharge Comment: okay to DC after AM labs come back, if hg>8, CR under 1. - Physicians Team Primary Care Provider: UNKNOWN, Attending Provider: Chavez Michael Other Providers: Heidi Blanco MD
[2017-10-28 10:38] LABS: Albumin 2.8 g/dL (3.4-5.0); Carbon Dioxide 28.3 meq/L (21.0-32.0); Magnesium 1.7 mg/dL (1.5-2.5); Phosphorus 3.8 mg/dL (2.5-4.9); Potassium 3.9 meq/L (3.5-5.1)
--- NOTE | 2017-10-28 10:47 | P.PNGI ---
Subjective Interval history: Pt sitting up in bed. Denies any discomfort. Tolerating full liquids without nausea or vomiting. Denies any noted bleeding. <ConLi - Last Filed: 10/28/17 10:39> Physical Exam Vital signs: Vital Signs 10/27/17 12:00 10/27/17 15:33 10/27/17 16:00 Temperature 97.8 F 97.9 F Pulse Rate 83 70 102 H Respiratory Rate 16 16 Blood Pressure 152/67 H 157/64 H Pulse Oximetry 98 99 10/27/17 16:20 10/27/17 16:45 10/27/17 19:57 Temperature 97.9 F 98.4 F Pulse Rate 70 67 73 Respiratory Rate 16 17 Blood Pressure 157/64 H 147/74 H Pulse Oximetry 99 10/27/17 20:00 10/27/17 23:46 10/28/17 00:00 Temperature 97.4 F L 97.8 F Pulse Rate 95 H 98 H 87 Respiratory Rate 17 18 Blood Pressure 163/67 H 124/59 L Pulse Oximetry 98 96 10/28/17 04:00 10/28/17 04:23 10/28/17 08:00 Temperature 97.8 F 97.3 F L Pulse Rate 83 77 80 Respiratory Rate 18 18 Blood Pressure 135/60 142/70 H Pulse Oximetry 96 96 Intake & Output 10/27/17 10/28/17 10/28/17 18:59 06:59 18:59 Intake Total 225 / 225 440 / 440 343 / 343 Output Total 1300 / 1300 Balance 225 / 225 -860 / -860 343 / 343 Weight 87.2 kg Intake: IV 125 / 125 343 / 343 D5W Inj 1,000 ML @ 30 mls/hr IV 343 / 343 .CONT .Q24H [facility] Rx#:[id number] KCl Inj 10 MEQ In 1/2 Normal 125 / 125 Saline Inj 1,000 ML @ 100 mls/ hr IV.CONT .Q10H3M [facility] Rx#: [id number] Oral 440 / 440 Anesthesia Amount 100 / 100 Intake (Blood Product) Amt 0 / 0 Rbc As-3 Leukoreduced Unit 0 / 0 [id number] Output: Urine 1300 / 1300 Other: Date of Last Bowel Movement 10/25/17 10/25/17 - Constitutional no acute distress, cooperative - Routine HEENT Exam Head: Present: normocephalic - Routine Respiratory Exam Present: CTA bilaterally - Routine Cardiovascular Exam Present: RRR - Routine Abdominal Exam Present: soft, normoactive bowel sounds. Absent: tenderness, distended, guarding - Routine Extremities Exam Present: full ROM, pulses intact - Routine Skin Exam Present: dry, warm - Routine Neurological Exam Present: alert, oriented X3 - Detailed Neurological Exam: Coma Scale Eye Opening: Spontaneous Verbal Response: Oriented Motor Response: Obey commands Ayad Coma Scale Total: 15 - Routine Psychiatric Exam Present: normal affect, cooperative <Li Andujar - Last Filed: 10/28/17 10:39> Vital signs: Vital Signs 10/27/17 23:46 10/28/17 00:00 10/28/17 04:00 Temperature 97.8 F 97.8 F Pulse Rate 98 H 87 83 Respiratory Rate 18 18 Blood Pressure 124/59 L 135/60 Pulse Oximetry 96 96 10/28/17 04:23 10/28/17 08:00 10/28/17 12:00 Temperature 97.3 F L 97.9 F Pulse Rate 77 108 H 92 H Respiratory Rate 18 18 Blood Pressure 142/70 H 145/62 H Pulse Oximetry 96 95 Intake & Output 10/28/17 10/28/17 10/29/17 06:59 18:59 06:59 Intake Total 440 / 440 343 / 343 Output Total 1300 / 1300 Balance -860 / -860 343 / 343 Weight 87.2 kg Intake: IV 343 / 343 D5W Inj 1,000 ML @ 30 mls/hr IV 343 / 343 .CONT .Q24H [facility] Rx#:[id number] Oral 440 / 440 Output: Urine 1300 / 1300 Other: Date of Last Bowel Movement 10/25/17 10/25/17 <Samy Wasserman - Last Filed: 10/28/17 22:46> Results - Labs CBC & Chem 7: 10/28/17 08:57 10/28/17 08:57 Laboratory Results - last 24 hr 10/27/17 10/28/17 10/28/17 12:53 08:57 08:57 WBC 5.8 RBC 2.95 L Hgb 8.8 L Hct 25.8 L MCV 87.4 MCH 29.9 MCHC 34.2 RDW 13.6 Plt Count 194 MPV 7.7 Neut % (Auto) 73.2 H Lymph % (Auto) 14.8 [place] % (Auto) 8.3 H Eos % (Auto) 3.1 Baso % (Auto) 0.6 Neut # (Auto) 4.3 Lymph # (Auto) 0.9 L [place] # (Auto) 0.5 Eos # (Auto) 0.2 Baso # (Auto) 0.0 WBC Differential . Differential Comment Auto diff final Sodium 146 H Potassium 3.9 Chloride 110 H Carbon Dioxide 28.3 Anion Gap 8 BUN 22 H Creatinine 0.77 Estimated GFR 73 L Random Glucose 100 Calcium 9.0 Phosphorus 3.8 Magnesium 1.7 Albumin 2.8 L MTS Gel Crossmatch See Detail Microbiology 10/25/17 20:40 Clean Catch Urine Urine Culture - Final 10-50,000 cfu/mL mixed scottie (probable contaminants) 10/25/17 20:00 Blood - Peripheral Aerobic Blood Culture - Preliminary No growth in 2 days 10/25/17 20:00 Blood - Peripheral Anaerobic Blood Culture - Preliminary No growth in 2 days 10/25/17 20:15 Blood - Peripheral Aerobic Blood Culture - Preliminary No growth in 2 days 10/25/17 20:15 Blood - Peripheral Anaerobic Blood Culture - Preliminary No growth in 2 days - Procedures EGD. Please see report. <Li Andujar - Last Filed: 10/28/17 10:39> - Labs CBC & Chem 7: 10/28/17 08:57 10/28/17 08:57 Laboratory Results - last 24 hr 10/28/17 10/28/17 08:57 08:57 WBC 5.8 RBC 2.95 L Hgb 8.8 L Hct 25.8 L MCV 87.4 MCH 29.9 MCHC 34.2 RDW 13.6 Plt Count 194 MPV 7.7 Neut % (Auto) 73.2 H Lymph % (Auto) 14.8 [place] % (Auto) 8.3 H Eos % (Auto) 3.1 Baso % (Auto) 0.6 Neut # (Auto) 4.3 Lymph # (Auto) 0.9 L [place] # (Auto) 0.5 Eos # (Auto) 0.2 Baso # (Auto) 0.0 WBC Differential . Differential Comment Auto diff final Sodium 146 H Potassium 3.9 Chloride 110 H Carbon Dioxide 28.3 Anion Gap 8 BUN 22 H Creatinine 0.77 Estimated GFR 73 L Random Glucose 100 Calcium 9.0 Phosphorus 3.8 Magnesium 1.7 Albumin 2.8 L Microbiology 10/25/17 20:00 Blood - Peripheral Aerobic Blood Culture - Preliminary No growth in 3 days 10/25/17 20:00 Blood - Peripheral Anaerobic Blood Culture - Preliminary No growth in 3 days 10/25/17 20:15 Blood - Peripheral Aerobic Blood Culture - Preliminary No growth in 3 days 10/25/17 20:15 Blood - Peripheral Anaerobic Blood Culture - Preliminary No growth in 3 days <Samy Wasserman - Last Filed: 10/28/17 22:46> Assessment and Plan - Plan Assessment: Follow up post EGD 10/27/17. Pt sitting up in bed awake alert and eating breakfast meal. Tolerating well without nausea or vomiting. Denies any noted bleeding. Denies abdominal pain. EGD done 10/27/17 revealed --> Normal esophagus, gastritis in the gastric antrum, small ulcer in the duodenum. Biopsies collected and pathology pending. Plan: Pt encouraged to avoid NSAIDS Continue PPI as ordered Follow anti-reflux precautions as discussed Bx results expected in 7- 10 days Call office in 2 weeks for results/ fu appointment Pt stable for dc home from a GI standpoint Pt was seen by myself and Dr. Wasserman. This note is written on his behalf. <Li Andujar - Last Filed: 10/28/17 10:39> - Attending Attestation Plan as above, will need outpatient follow up. <Samy Wasserman - Last Filed: 10/28/17 22:46>
== END 2017-10-28 12:55 | disposition home health service (06) ==
LOC: NEPD 18:28 → NEDA 22:01 → N04 23:22
PROVIDERS: ADMIT Internal Medicine; ATTEND Internal Medicine
PROC: PANENDO (2017-10-27 09:08)